=== PATIENT | female | born 1930 | race Caucasian/White ===

== ENCOUNTER 2019-04-05 17:57 | Inpatient (IN) | payer MEDICARE, BC ==
[~2019-04-05] VITALS: Ht 147.3 cm; Wt 59.0 kg
--- NOTE | ~2019-04-05 | PR ---
[place], [place] PROGRESS NOTE NAME: ELVIE MAYS UNIT #: [id number] ROOM: 317 DOCTOR: GAYLE YORK DO BIRTHDATE: [birth year] DOS: 04/27/2019 PSYCHIATRIC PROGRESS NOTE CHIEF COMPLAINT: Hi, "I am feeling great. Rest of the conversation, the patient spoken in Nigerien." SUMMARY OF VISIT: The patient interviewed in hallway using the Merry walker. The patient was polite and smiling. The patient attempted to communicate with us, but she was only speaking in Nigerien. Per nursing staff, the patient did not sleep well last night. She had to be given p.r.n. Ativan and it was ineffective. However, she has been polite with staff and continues to be interactive in a friendly way. MENTAL STATUS EXAMINATION: Mental status examination is limited due to the patient's overall confusion and her inability to speak Vietnamese. PLAN: The patient remains stable. No medication changes at this time due to the patient being stable. We will continue to support and monitor. We will continue to have the patient engaged in individual and salazar milieu activity, returning to the least restrictive environment when stable. Gayle York DO CON NGUYEN MD CM:PNTRANS [id number] GAYLE YORK DO 04/28/19 0156 interface
--- NOTE | ~2019-04-05 | PR ---
[place], [place] PROGRESS NOTE NAME: ELVIE MAYS UNIT #: [id number] ROOM: 317 DOCTOR: CON NGUYEN MD BIRTHDATE: [birth year] DOS: 04/23/2019 INTERVAL NOTE CHIEF COMPLAINT: The patient smiled at me. SUMMARY OF THE VISIT: The patient was attempted to be interviewed in the dining room when she was sitting waiting for breakfast. As I approached and attempted to engage her in conversation, she smiled and nodded at me, but did not verbalize anything. She was not agitated or aggressive in any way. There was no mood lability noted. There was also no sedation or somnolence noted. MENTAL STATUS EXAMINATION: My mental status examination is limited due to her confusion and her inability to speak Welsh at this point. PLAN: I will maintain her current psychotropic regimen, continue to engage in individual, and salazar milieu activity, returning then to the least restrictive environment when psychiatrically stable. CON NGUYEN MD CM:PNTRANS [id number] CON NGUYEN MD 04/23/19 0957 interface
--- NOTE | ~2019-04-05 | PR ---
[place], [place] PROGRESS NOTE NAME: ELVIE MAYS UNIT #: [id number] ROOM: 317 DOCTOR: CON NGUYEN MD BIRTHDATE: [birth year] DOS: 04/12/2019 CHIEF COMPLAINT: The patient was awake, alert and engaged in good eye contact, but did not speak. SUMMARY OF THE VISIT: The patient was interviewed as she was sitting. She had already finished her breakfast with the help of the nurse's aides. She ate very well. She was alert and did make eye contact with me. I attempted on multiple occasions to ask her simple questions. She did not respond, however, she was not agitated in any way. She smiled readily. She did not strike out or was not verbally hostile in any fashion. Outwardly, she seems to be tolerating the current medication regimen well without sedation or somnolence. MENTAL STATUS: Limited due to her communication issues. PLAN: I will renew her p.r.n. Ativan should she require intervention, continue to engage in individual and salazar milieu activity, returning to the least restrictive environment when psychiatrically stable. CON NGUYEN MD CM:PNTRANS [id number] CON NGUYEN MD 04/12/19 1233 interface
--- NOTE | ~2019-04-05 | PR ---
[place], [place] PROGRESS NOTE NAME: ELVIE MAYS UNIT #: [id number] ROOM: 317 DOCTOR: UMER GIVENS CNP BIRTHDATE: [birth year] DOS: 04/15/2019 CHIEF COMPLAINT: The patient does not express any concerns. She does not converse with me this morning. SUMMARY OF THE VISIT: The patient was interviewed as she sat in the quiet room. The patient is alert. She opens her eyes whenever I call her name; however, she does not converse with me. Staff reports that the patient did not sleep at all last night, maybe she did sleep 1 hour of interrupted sleep throughout the night, but otherwise, there was no continuity to her sleep. The patient's appetite was good. The patient did remain alert and awake for most of the day yesterday. She does take her medications as prescribed. The patient has not exhibited any behaviors. The patient was treated this morning with Monurol for her UTI. MENTAL STATUS EXAMINATION: The patient is alert to self. There was no jose or hypomania noted. No delusions or paranoia noted. No auditory or visual hallucinations noted. The patient's mood was calm. No agitation or aggression noted this morning. The patient's affect was congruent with mood. PLAN: We will prescribe the patient Vistaril 50 mg at bedtime to see if this will aid in helping her sleep. We will monitor symptoms too, as the patient's UTI resolves. We will encourage the patient to engage in individual and salazar milieu activity. Continue fall safety precautions. Plan is to return the patient to the least restrictive environment when she is considered psychiatrically stable. Umer Givens CNP CM:PNTRANS [id number] [id number] UMER GIVENS CNP 04/16/19 0049 interface
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
--- NOTE | ~2019-04-05 | PR ---
[place], [place] PROGRESS NOTE NAME: ELVIE MAYS UNIT #: [id number] ROOM: 317 DOCTOR: CON NGUYEN MD BIRTHDATE: [birth year] DOS: 04/29/2019 INTERVAL NOTE CHIEF COMPLAINT: The patient smiled at me. SUMMARY OF THE VISIT: The patient was interviewed or attempted to be interviewed as she was sitting in the dining area, watching television. As I approached, she smiled. I attempted to engage her and she spoke what appeared to be Yoruba to me. She was pleasant and cooperative. There was no agitation or aggression, no mood lability was noted. There was no symptom suggestive of hypomania, jose or psychosis. There was no sedation or somnolence. MENTAL STATUS: She is alert and oriented to self, unclear place or time. Mood seems fairly euthymic. There is no mood lability, no jose or psychosis. No TD or extrapyramidal symptoms. PLAN: The patient appears stable. At this point, I see no reason to adjust any medicines further. If she does seem to be in a euthymic state, we will monitor and support, return to the least restrictive environment when stable. CON NGUYEN MD CM:PNTRANS 1059 CON NGUYEN MD 04/29/19 1059 interface
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
--- NOTE | ~2019-04-05 | PR ---
[place], [place] PROGRESS NOTE NAME: ELVIE MAYS UNIT #: [id number] ROOM: 317 DOCTOR: CON NGUYEN MD BIRTHDATE: [birth year] DOS: 04/25/2019 CHIEF COMPLAINT: The patient smiled readily as I approached and engaged her in conversation. SUMMARY OF THE VISIT: The patient was attempted to be interviewed as she was finishing her breakfast with the aid of one of the nurse's aides. As I approached, she smiled readily. She nodded, but did not communicate beyond that. There was no inappropriate behavior. There was no mood lability or agitation. For the most part, she looked pleasantly content: MENTAL STATUS EXAMINATION: My mental status examination is limited due to her overall level of confusion and her inability at this time to speak Sami. PLAN: The patient is stable. At this point, I will maintain her current psychotropic regimen, continue to engage in individual and salazar milieu activity, returning to the least restrictive environment when stable. [employer] have been notified to let the family know that discharge is eminent and will happen tomorrow. We will proceed accordingly. CON NGUYEN MD CM:PNTRANS 0928 16 CON NGUYEN MD 04/25/19 2017 interface
--- NOTE | ~2019-04-05 | PR ---
[place], [place] PROGRESS NOTE NAME: ELVIE MAYS UNIT #: [id number] ROOM: 317 DOCTOR: CON NGUYEN MD BIRTHDATE: [birth year] DOS: 04/24/2019 INTERVAL NOTE CHIEF COMPLAINT: "The patient smiled readily." SUMMARY OF THE VISIT: The patient was interviewed as she was eating her breakfast. She had most of her breakfast eaten and smiled as I approached. She nodded, but did not speak Chadian to me. There was no agitation, no aggression, no inappropriate behavior. There was no sedation, somnolence, extrapyramidal symptoms or tardive dyskinesia. On mental status, she was alert and oriented to self, not time or place. Mood was euthymic. Affect was appropriate. There is no jose or hypomania. No gross psychosis. Memory does have gaps. PLAN: I will continue her current psychotropic regimen, continue to engage in individual and salazar milieu activity, returning to the least restrictive environment when psychiatrically stable. CON NGUYEN MD CM:PNTRANS [id number] CON NGUYEN MD 04/24/19 1319 interface
--- NOTE | ~2019-04-05 | PR ---
[place], [place] PROGRESS NOTE NAME: ELVIE MYAS UNIT #: [id number] ROOM: 317 DOCTOR: CON NGUYEN MD BIRTHDATE: [birth year] DOS: 04/09/2019 INTERVAL NOTE CHIEF COMPLAINT: "The patient just looked at me". SUMMARY OF THE VISIT: The patient was attempted to be interviewed as she was sitting in a Tiffany chair in the quiet room. As I approached, she made eye contact. I attempted on multiple occasions to call her name and asked her simple questions. She did not make any verbalizations whether it be in Welsh or Greek. She looked at me and did not appear distraught in anyway. She did not yell out. She was not agitated in any motor fashion. She seemed for the most part fairly pleasant. MENTAL STATUS: She is alert and oriented to self, unclear place or time. Mood does still seem to be anxious at times and she is very fretful per nursing report. PLAN: I will go ahead and increase her Xanax to 0.5 mg twice daily in an effort to decrease her outward anxiety. We will monitor and support, engage in individual and salazar milieu activity, returning to the least restrictive environment when psychiatrically stable. CON NGUYEN MD CM:PNTRANS [phone] CON NGUYEN MD 04/09/19 1233 interface
--- NOTE | ~2019-04-05 | PR ---
[place], [place] PROGRESS NOTE NAME: ELVIE MAYS UNIT #: [id number] ROOM: 317 DOCTOR: UMER GIVENS CNP BIRTHDATE: [birth year] DOS: 04/14/2019 CHIEF COMPLAINT: "Hello." SUMMARY OF VISIT: The patient was interviewed as she sat in the activities room. She does not engage in conversation. The patient continues to be somewhat somnolent. Staff reports that the patient seems to have her days and nights mixed up, sleeping more during the day and up at night. The patient's appetite has been fair. The patient is taking her medications as prescribed. MENTAL STATUS EXAMINATION: The patient is alert to self. She is pleasant. No agitation or irritability noted at this time. No jose or hypomania noted. No delusions or paranoia noted. No psychotic symptoms noted. No auditory or visual hallucinations noted. The patient's mood is calm. Affect congruent with mood. PLAN: We will order a serum ammonia level, comprehensive metabolic panel, and urinalysis just to rule out any organic factors that may cause the patient to be more somnolent during the day. Continue to encourage the patient to engage in individual and salazar milieu activity. Continue fall and safety precautions. Plan is to return the patient to least restrictive environment when she is considered psychiatrically stable. Umer Givens CNP CM:PNTRANS [phone] UMER GIVENS CNP 04/15/19 0954 interface
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
--- NOTE | ~2019-04-05 | PR ---
[place], [place] PROGRESS NOTE NAME: ELVIE MAYS UNIT #: [id number] ROOM: 317 DOCTOR: UMER GIVENS CNP BIRTHDATE: [birth year] DOS: 04/13/2019 CHIEF COMPLAINT: The patient was very somnolent. SUMMARY OF THE VISIT: I attempted to interview the patient as she sat in the dining room; however, she was sleeping and would not arouse to engage in conversation with me. Staff reports that the patient has been compliant with her medications. She did sleep 5 hours last night. She was somewhat combative with toileting; however, was able to be redirected easily and has had no further behaviors. MENTAL STATUS EXAMINATION: The patient does not exhibit any jose or hypomania. There are no signs of delusions or paranoia. No auditory or visual hallucinations noted. The patient is calm at this time, sleeping. No agitation or aggression noted. PLAN: I will continue the patient's medications as prescribed as she seems to be tolerating them without any side effects. We will continue to monitor and support the patient. We will encourage the patient to engage in individual and salazar milieu activity. We will continue fall and safety precautions. Plan is to return the patient to the least restrictive environment when she is considered psychiatrically stable. Umer Givens CNP CM:PNTRANS 0929 1215 UMER GIVENS CNP 04/13/19 1216 interface
--- NOTE | ~2019-04-05 | PR ---
[place], [place] PROGRESS NOTE NAME: ELVIE MAYS UNIT #: [id number] ROOM: 317 DOCTOR: CON NGUYEN MD BIRTHDATE: [birth year] DOS: 04/28/2019 CHIEF COMPLAINT: "The patient looked at me and smiled." SUMMARY OF THE VISIT: The patient was interviewed as she was sitting in the dining room. She was curled up in a blanket. She had eaten a good breakfast with the assistance of the aides. She was not verbally or physically aggressive. There was no bizarre behavior noted. She for the most part was very pleasant. In my examination of her today, she was pleasant. She did not speak, but nodded and smiled readily. She reached out to hold my hand. She was fairly bright. There was no mood lability, no agitation, no aggression, no sedation, no somnolence, no extrapyramidal symptoms. No tardive dyskinesia. PLAN: At this point is to maintain the current psychotropic regimen as the medications do seem effective. There were no side effects of note and the benefits have been quite profound. CON NGUYEN MD CM:PNTRANS [id number] CON NGUYEN MD 04/28/19 1126 interface
--- NOTE | ~2019-04-05 | PR ---
[place], [place] PROGRESS NOTE NAME: ELVIE MAYS UNIT #: [id number] ROOM: 317 DOCTOR: CON NGUYEN MD BIRTHDATE: [birth year] DOS: 04/22/2019 CHIEF COMPLAINT: The patient was busy eating her breakfast by herself. SUMMARY OF THE VISIT: The patient was interviewed or attempted to be interviewed as she was eating breakfast. She was eating by herself without any assistance and had most if not all of her breakfast tray completely eaten. She was bright and smiled at me, but did not verbalize anything. She was not agitated or aggressive in any way. There was no mood lability noted. There was no sedation or somnolence. MENTAL STATUS: She is alert and oriented to self. Otherwise, it is very difficult to ascertain as she was relatively nonverbal with me. PLAN: I will maintain her current psychotropic regimen, continue to engage in individual and salazar milieu activity, returning to the least restrictive environment when psychiatrically stable. CON NGUYEN MD CM:PNTRANS [id number] CON NGUYEN MD 04/22/19 0939 interface
[~2019-04-05 17:57] MED LIST: ATARAX,VISTARIL50 MG PO; ATIVAN2 M1 PO; DEPAKENE250 M1 PO; DEPAKOTE SPRIN125 MG PO; EXELON13.3 MG/21 T; MELATONIN5 M6 PO; MEMANTINE HCL10 MG PO; MIRTAZAPINE15 M1 PO; PANTOPRAZOLE SO40 MG PO; QUETIAPINE FUM100 M3 PO; RISPERDAL0.5 MG PO; Synthroid,Levo25 MCG PO; VALSARTAN-HCTZ1 EAC1 PO; Vitamin D PO
[2019-04-05] MEDS ORDERED: REMERON15 M2 PO (18:03)
[2019-04-05] MEDS ORDERED: SEROQUEL50 MG PO (18:05)
[2019-04-05] MEDS ORDERED: ZYPREXA5 M1 PO (18:09)
[2019-04-05] MEDS ORDERED: ABH GEL TD (18:11)
--- NOTE | 2019-04-05 19:30 | NUR ---
ELVIE MAYS a 88 year old F admitted via wheel chair from [facility] as a voluntary BY POA admission. Arrived on unit at 1930. ALLERGIES: NKA. Vital signs are: 97.8-65-17 116/72. The POA VERBALLY CONSENTED TO the following forms with stated understanding: Authorization For The Release of Medical Information, Consent to Voluntary Admission and Hospitalization, Consent and Release Forms/Receipt of Rights, Acknowledgement of Advance Directive Information, Behavioral Health Consent Form, and Informed Consent of Medications. Admitted under the services of Dr. WENDY KELLEY,[facility]. A search was conducted and hazardous articles were removed. Client was oriented to the unit. MARYLOU CORRALES
--- NOTE | 2019-04-05 20:03 | NUR ---
DR. DOHERTY NOTIFIED OF NEW ADMISSION. STATED TO PUT THE CONSULT UNDER DR. RAO.
[2019-04-05 20:05] VITALS: BP 116/72
[2019-04-05 20:22] VITALS: BP 116/72
--- NOTE | 2019-04-05 20:49 | NUR ---
DR. DOHERTY ON FLOOR TO ASSESS PT. UPDATE PROVIDED.
[2019-04-05 21:10] LABS: ALBUMIN 3.2 gm/dl (3.1-4.5); ALKALINE PHOSPHATASE 75 U/L (45-117); BUN 33 mg/dl (7-24); CHLORIDE 104 mmol/L (98-107); CHOLESTEROL 181 mg/dL (<200); CREATININE 0.89 mg/dL (0.55-1.02); HDL CHOLESTEROL 56 mg/dl (40-60); LDL CHOLESTEROL 106 mg/dL (9-159); POTASSIUM 3.8 mmol/L (3.5-5.1); SGOT/AST 18 IU/L (3-35); SGPT/ALT 11 U/L (12-78); SODIUM 141 mmol/L (136-145); TOTAL PROTEIN 7.5 gm/dL (6.4-8.2); TRIGLYCERIDES 93 mg/dl (<150); VLDL CHOLESTEROL 19 mg/dL (6-40)
--- NOTE | 2019-04-05 22:28 | NUR ---
UNABLE TO ASSESS IN THE PROCESS INTERVENTIONS GERIATRIC DEPRESSION SCREEN, ST/LT GOALS, SUICIDE RISK SCREENS DUE TO LANGUAGE BARRIER AND COGNITION.
[2019-04-06 00:06] LABS: BILIRUBIN NEGATIVE (NEGATIVE); BLOOD NEGATIVE (NEGATIVE); CLARITY SL CLOUDY (CLEAR); COLOR YELLOW (YELLOW); GLUCOSE NEGATIVE (NEGATIVE); KETONE NEGATIVE (NEGATIVE); LEUKO ESTERASE 2+ (NEGATIVE); NITRITE POSITIVE (NEGATIVE); PH 5.5 (5.0-9.0); UROBILINOGEN 0.2 E.U./dl (0.2-1.0)
[2019-04-06 00:12] LABS: BACTERIA 4+; WBC TNTC wbc/hpf (0-5)
[2019-04-06 00:13] LABS: EPITHELIAL CELLS 0-2; MUCOUS TRACE
--- NOTE | 2019-04-06 01:08 | NUR ---
DR. DOHERTY NOTIFIED OF PT'S URINE RESULTS ARE IN FOR REVIEW. NO NEW ORDERS AT THIS TIME.
--- NOTE | 2019-04-06 02:58 | NUR ---
PT ALERT AND ORIENTED TO PERSON ONLY. CONFUSION AND ST/LT MEMORY DEFICITS NOTED. REORIENTATION INEFFECTIVE, REMAINS AT BASELINE CONFUSION. LANGUAGE BARRIER. MOOD LABILE. NO S/S OF INTERACTING WITH INTERNAL STIMULI. NO DELUSIONAL THOUGHT PROCESS NOTED. NO S/S OF DISTRESS NOTED. RESPIRATIONS EVEN AND UNLABORED ON ROOM AIR. CONTINENT OF URINE. TWO ASSIST WITH TRANSFERING, AMBULATING, AND CARE. PT'S GAIT UNSTEADY. UTILIZING GERICHAIR. PT LIKES TO FOLD HER BLANKET AND TOWELS, SEEMS TO KEEP THE PT CALM. SMILING AT STAFF AND LAUGHING AT TIMES. PT GETS SLIGHTLY IRRITABLE WHEN ASSISTING WITH CARE DUE TO LANGUAGE BARRIER, STEP BY STEP INSTRUCTION NEEDED. FALLING STAR PROGRAM MAINTAINED. Q15 MINUTE CHECKS MAINTAINED FOR SAFETY.
--- NOTE | 2019-04-06 03:04 | NUR ---
24 HR chart check completed.
[2019-04-06 07:11] LABS: BASO % 0.8 % (0.0-1.0); EOS # 0.1 10*3/uL (0.0-0.4); EOS % 2.7 % (1.0-4.0); HEMATOCRIT 34.6 % (37.0-47.0); HEMOGLOBIN 11.2 g/dl (12.0-16.0); LYMPH # 1.3 10*3/uL (1.3-4.4); LYMPH % 24.3 % (27.0-41.0); MEAN CELL VOLUME 88.9 fl (81.0-99.0); MEAN CORPUSCULAR HGB 28.8 pg (27.0-31.0); MEAN CORPUSCULAR HGB CONC 32.4 g/dl (33.0-37.0); MEAN PLATELET VOLUME 10.1 fl (9.6-12.3); MONO # 0.5 10*3/uL (0.1-1.0); MONO % 9.1 % (3.0-9.0); NEUT # 3.3 10*3/uL (2.3-7.9); NEUT % 62.7 % (47.0-73.0); PLATELET COUNT AUTOMATED 220 10*3/uL (130-400); RED BLOOD COUNT 3.89 10*6/uL (4.10-5.10); RED CELL DISTRI WIDTH 15.8 % (0-14.5); WHITE BLOOD COUNT 5.3 10*3/uL (4.8-10.8)
[2019-04-06 07:20] LABS: BUN 31 mg/dl (7-24); CHLORIDE 106 mmol/L (98-107); CREATININE 0.83 mg/dL (0.55-1.02); POTASSIUM 3.6 mmol/L (3.5-5.1); SGOT/AST 17 IU/L (3-35); SGPT/ALT 12 U/L (12-78); SODIUM 141 mmol/L (136-145)
[2019-04-06 07:32] LABS: ALKALINE PHOSPHATASE 64 U/L (45-117); CHOLESTEROL 167 mg/dL (<200); HDL CHOLESTEROL 53 mg/dl (40-60); LDL CHOLESTEROL 97 mg/dL (9-159); TOTAL PROTEIN 6.9 gm/dL (6.4-8.2); TRIGLYCERIDES 84 mg/dl (<150); VLDL CHOLESTEROL 17 mg/dL (6-40)
[2019-04-06 07:40] VITALS: BP 118/65
--- NOTE | 2019-04-06 08:00 | NUR ---
Treatment Plan meeting with Dr. Stallworth, RN, AT, SW and Rn Documentation Specialist. Plan for discharge next week or the following week. Pt. came to [facility] from [facility]. Will reach out to facility to discuss discharge Planning.
--- NOTE | 2019-04-06 08:04 | NUR ---
PHYSICAL THERAPY Nursing screen received. PT orders also received. Thank you. Damaris Schneider,PT
[2019-04-06 08:34] LABS: VITAMIN D, 25-HYDROXY 28.4 ng/mL (30-100)
--- NOTE | 2019-04-06 08:34 | NUR ---
Nursing screen and Occupational Therapy referral received. Thank you. Joyce Sung OTR/L
--- NOTE | 2019-04-06 10:02 | NUR ---
DR ESCALANTE ON UNIT TO ASSESS PT
--- NOTE | 2019-04-06 11:50 | NUR ---
PHYSICAL THERAPY PAtient sleeping at this time. Damaris Schneider,PT
--- NOTE | 2019-04-06 12:09 | NUR ---
Please refer to psychosocial assessment from previous patient admission date 03/08/19.
--- NOTE | 2019-04-06 12:53 | NUR ---
AM GROUP/MUSIC AND LIGHT THERAPY PT DID NOT ATTEND MORNING GROUP THERAPY. PT WAS ASLEEP RECLINED IN A ZEINA CHAIR IN THE DAYROOM
--- NOTE | 2019-04-06 14:25 | NUR ---
Pt. is [facility] care at [facility] and will return at discharge. Clinical Updates faxed to [facility].
--- NOTE | 2019-04-06 15:53 | NUR ---
PM GROUP/BINGO PT WAS PRESENT FOR AFTERNOON GROUP THERAPY SLEEPING RECLINED IN A ZEINA CHAIR. PT STIRRED ONCE BUT OTHERWISE DID NOT WAKE.
--- NOTE | 2019-04-06 17:14 | NUR ---
PT ALERT TO PERSON ONLY WITH CONFUSION AND MEMORY DEFICITS NOTED. STABLE MOOD. PT HAD INCREASED DROWSINESS. AROUSABLE WITH VERBAL AND PHYSICAL CUES. NO HALLUCINATIONS OR DELUSIONS NOTED. NO SI/HI NOTED. CALM. WITHDRAWN TO SELF. FALL PRECAUTIONS MAINTAINED. Q15 MINUTE SAFETY CHECKS MAINTAINED. SON IN FOR VISIT THIS AFTERNOON. REVIEWED MEDICATIONS WITH SON. MEDICATION COMPLIANT WITHOUT DIFFICULTIES. NO HITTING, SPITTING, OR BITING NOTED. SEE [facility] FLOWSHEET FOR SPECIFIC MONITORING.
[2019-04-06 20:00] VITALS: BP 106/72
--- NOTE | 2019-04-07 00:45 | NUR ---
P- TEARFUL. RESTLESS. ANXIOUS. ALERT AND ORIENTED TO PERSON ONLY, CONFUSED. ST/LT MEMORY DEFICITS NOTED. LANGUAGE BARRIER. I- 1:1 THERAPEUTIC INTERVENTION WITH EMOTIONAL SUPPORT PROVIDED. LOW STIMULI AND LOW LIGHT ENVIRONMENT PROVIDED. DIVERSIONAL ACTIVTIES PROVIDED TO KEEP BUSY WHILE RESTLESS AND ANXIOUS. PROVIDE SHREYAS-WALKER. ASSESS MOOD, ORIENATION, HALLUCINATIONS, DELUSIONS, OR PAIN. PROVIDE MEDICATONS ON TIME WITH EDUCATION ON EACH MED. 1-2 ASSIST WITH TRANSFERING, AMBULATING, ADLS, AND CARE DUE TO UNSTEADY GAIT. PROVIDE ADLS AND CARE FREQUENTLY DUE TO INABILITY TO VOICE NEEDS. R- 1:1 INTERVENTION SLIGHTLY EFFECTIVE. PT TALKING IN PERSIAN TO STAFF AND TEARFUL. UTILIZING MARYWALKER UP AND DOWN THE HALLS, CALMING THE PT. ENJOYS FOLDING TOWELS WHILE RESTLESS. ALERT TO NAME ONLY. MOOD LABILE. NO S/S OF INTERACTING WITH INTERNAL STIMULI. NO DELUSIONAL THOUGHT PROCESS NOTED. NO S/S OF DISTRESS NOTED. RESPIRATIONS EVEN AND UNLABORED ON ROOM AIR. TEARFUL AT TIMES. MEDICATION COMPLIANT WITH NO DIFFICULITES. P- 1:1 INTERACTION WITH EMOTIONAL SUPPORT PROVIDED WHEN NECESSARY. PROVIDE MEDICATIONS ON TIME WITH EDUCATION ON EACH. PROVIDE LOW STIMULI/LOW LIGHT ENVIRONMENT. PROVIDE DIVERSIONAL ACTIVTIES, TOWELS TO FOLD. PROVIDE MARYWALKER TO UTILIZE FREQUENTLY. 1-2 ASSIST WITH ADLS, TRANSFER, AMBULATING, CARE DUE TO UNSTEADY GAIT. FALLING STAR PROGRAM MAINTAINED. Q15 MINUTE CHECKS MAINTAINED FOR SAFETY.
--- NOTE | 2019-04-07 01:35 | NUR ---
24 HR chart check completed.
--- NOTE | 2019-04-07 05:29 | NUR ---
PT MONITORED ON Q15 MINUTE CHECKS THROUGHOUT THE NIGHT FOR SAFETY. NOTED PT DID NOT SLEEP. PT WAS UP IN THE MARYWALKER, GOING UP AND DOWN THE AHMADI. PT WANTED IN THE GERICHAIR WITH LEGS UP, QUIET AND PLEASANT.
[2019-04-07 08:00] VITALS: BP 108/70
--- NOTE | 2019-04-07 11:48 | NUR ---
AM GROUP/EXERCISES/COPING SKILLS LORENA PT ATTENDED BUT DID NOT PARTICIPATE DUE TO SLEEPING ENTIRE GROUP IN RECLINER. PT WILL CONTINUE TO ATTEND AN DBE ENCOURAGED OT PARTICIPATE TO BEST OF PT ABILITY IN FUTURE GROUP SESSIONS.
--- NOTE | 2019-04-07 12:07 | NUR ---
PHYSICAL THERAPY ATTEMPTED TO EVAL PATIENT TODAY ON [facility] BUT AFTER SPEAKING WITH NURSES/OUTREACH NURSE'S SHE IS NOT APPROPRIATE FOR PT SERVICES. SHE IS UNABLE TO UNDERSTAND OR SPEAK ICELANDIC AND SHE IS CURRENTLY ABLE TO [facility]F [facility] AND UNSURE OF PLOF BUT APPEARS SHE AMBULATES ON HER OWN. THANK YOU FOR REFERRAL [facility] PT
--- NOTE | 2019-04-07 16:11 | NUR ---
PM GROUP/GAMES PT SLEPT FIRST 15 MINUTES OF GROUP AND THEN ATTEMPTED TO CLIMB OUT OF RECLINER. NURSE CAME AND TOILETED PT AND ASSISTED PT INTO SHREYAS WALKER. PT UTILIZED SHREYAS WALKER UP AND DOWN THE AHMADI REMAINDER OF GROUP. PT WILL CONTINUE TO BE ENCOURAGED TO ATTEND AN DPARTICIPATE IN GROUP TO BEST OF PT ABILITY.
--- NOTE | 2019-04-07 18:09 | NUR ---
P: FLUCTUATING ALERTNESS, POOR SAFETY AWARENESS, POOR ST/LT MEMORY, RESTLESSNESS LANGUAGE BARRIER I: ASSIST PT WITH NEEDS DEPENDING ON ALERTNESS, AT 1330 PT BECAME VERY ALERT AND NOT FATIGUED. ASSISTED TO TOILET PLACED IN MERRY WALKER, PT PROPELLING SELF UP AND DOWN HALLWAYS, MONITORED BY STAFF FOR SAFETY, R: PT WANDERS INTO OTHERS ROOMS AT TIMES AND WILL BE REDIRECTED BY STAFF AWAY, PT HAS REMOVED PANTS AT TIMES IN HALLWAYS STAFF WILL REDIRECT AND ASSIST HER TO THE BATHROOM. PT ENJOYS AMBULATING WITH STAFF AND WITH MERRY WALKER. REQUIES STAFF TO FEED AND ASSIST WITH ALL ASPECTS OF HANDS ON CARE. INAPPROPRIATE WITH BM AT TIMES, EVEN WHEN TOILETED FREQUENTLY P: CONTINUE TO REDIRECT, REPOSITION, GUIDE, ENCROUAGE MEDICATION COMPLIANCE, TOILET FREQUENTLY ENCOURAGE HER TO USE BATHROOM PROPERLY. NO SI/HI OR DELUSIONS NOTED PT WILL TALK TO SELF AND SPEAK NONSENSICAL
[2019-04-07 20:00] VITALS: BP 110/65
--- NOTE | 2019-04-07 23:10 | NUR ---
LANGUAGE BARRIER CLIENT ONLY SPEAKING SYRIAN. TOOK APPROX 75% OF MEDICATIONS BEFORE SPITTING OUT. REMAINS AWAKE PLAYING WITH BLANKETS IN CHAIR
--- NOTE | 2019-04-08 02:09 | NUR ---
REMAINS AWAKE IN DININGROOM WATCHING TV. LESS YELLING OUT AT THIS TIME
--- NOTE | 2019-04-08 05:17 | NUR ---
24 HR chart check completed.
--- NOTE | 2019-04-08 05:20 | NUR ---
24 HR chart check completed.
--- NOTE | 2019-04-08 06:13 | NUR ---
DID NOT SLEEP AT ALL LAST NIGHT. HAS BEEN AWAKE AND ACTIVE ALL NIGHT IN DININGROOM.
[2019-04-08 07:29] VITALS: BP 108/66
--- NOTE | 2019-04-08 18:07 | NUR ---
PT ALERT TO PERSON WITH CONFUSION NOTED. NO HALLUCINATIONS OR DELUSIONS NOTED. NO SI/HI NOTED. PT REFUSED MEDICATIONS IN THE AM. PT TOOK AFTERNOON MEDICATIONS FOR FAMILY AND EVENING MEDICATIONS FOR THIS NURSE IN [facility]. PT AMBULATED AROUND UNIT IN [facility] THROUGHOUT AFTERNOON AND EVENING. COMBATIVENESS NOTED DURING MED PASS IN THE AM, HOWEVER BEHAVIOR STOPPED WHEN CARE WAS COMPLETED. NO OTHER COMBATIVENESS NOTED THIS SHIFT. NO BITING OR SPITTING NOTED. PT INTERMITTENTLY NAPPED PRIOR TO LUNCH. INCONTINENCE CARE PROVIDED WHEN NEEDED. BEHAVIORS MONITORED WITH Q15 MINUTE SAFETY CHECKS. SEE [facility] FLOWSHEET FOR SPECIFIC MONITORING
[2019-04-08 19:11] VITALS: BP 112/69
--- NOTE | 2019-04-09 02:36 | NUR ---
[facility] VOID[facility] AND [facility]
--- NOTE | 2019-04-09 05:31 | NUR ---
SLEPT WELL PAST 0300AM 24 HR chart check completed.
[2019-04-09 07:54] VITALS: BP 111/65
--- NOTE | 2019-04-09 11:46 | NUR ---
AM GROUP/EXERCISE AND WRITING PT IS UNABLE TO ATTEND AND PARTICIPATE IN GROUP THERAPY AT THIS TIME DUE TO COGNITIVE IMPAIRMENT AND A LANGUAGE BARRIER.
--- NOTE | 2019-04-09 15:51 | NUR ---
PM GROUP/MUSIC AND TRIVIA PT DID NOT ATTEND AFTERNOON GROUP THERAPY. PT IS UNABLE TO PARTICIPATE AT THIS TIME DUE TO COGNITIVE IMPAIRMENT, HIGH LEVEL OF CONFUSION AND LANGUAGE BARRIERS.
--- NOTE | 2019-04-09 16:31 | NUR ---
Clinical Updates faxed to [facility].
[2019-04-09 20:00] VITALS: BP 112/62
--- NOTE | 2019-04-10 00:37 | NUR ---
NO ADVERSE MOODS OR BEHAVIORS NOTED THIS SHIFT. ALERT TO SELF, CONFUSION AND ST/LT MEMORY DEFICITS NOTED. LANGUAGE BARRIER. REORIENATION INEFFECTIVE, REMAINS AT BASELINE. MOOD STABLE. NO S/S OF INTERACTING WITH INTERNAL STIMULI. NO DELUSIONAL THOUGHT PROCESS NOTED. RESPIRATIONS EVEN AND UNLABORED ON ROOM AIR. NO S/S OF DISTRESS NOTED. REFUSED HS SNACK. CONTINENT OF BLADDER. INCONTINENT OF BOWEL. PT CURRENTLY AWAKE, SITTING UP IN GERICHAIR, RELAXING. FALLING STAR PROGRAM IN PLACE. Q15 MINUTE CHECKS MAINTAINED FOR SAFETY.
--- NOTE | 2019-04-10 00:41 | NUR ---
24 HR chart check completed.
--- NOTE | 2019-04-10 05:49 | NUR ---
Q15 MINUTE CHECKS MAINTAINED THROUGHOUT THE NIGHT. NOTED TO HAVE SLEPT APPROXIMATELY 2 HOURS OF INTERRUPTED SLEEP. PT MORE COMFORTABLE UP IN GERICHAIR IN THE DINING ROOM. PT MORE RELAXED AND WAS ABLE TO GET THE TWO HOURS OF SLEEP IN THE ZEINA CHAIR.
[2019-04-10 07:49] VITALS: BP 117/65
--- NOTE | 2019-04-10 08:00 | NUR ---
Treatment Plan meeting with Dr. Stallworth, RN, AT, SW and Material Liaison. Plan for discharge Next week. Pt. will return to [facility].
--- NOTE | 2019-04-10 08:00 | NUR ---
Patient resting quietly with no c/o discomfort. Respirations easy and regular. Vital signs stable. No overt distress. DIRK ASKEW
--- NOTE | 2019-04-10 11:51 | NUR ---
AM GROUP/EXERCISE AND DISCUSSION PT WAS PRESENT FOR GROUP SLEEPING IN A ZEINA CHAIR. PT AWOKE ONE TIME AND YELLED, "SHUT UP! YADDA, YADDA, YADDA" AND WENT BACK TO SLEEP. PT IS UNABLE TO PARTICIPATE AT THIS TIME DUE TO COGNITIVE IMPAIRMENT AND LANGUAGE BARRIER.
--- NOTE | 2019-04-10 15:21 | NUR ---
Problem: Short term and ocean transportation intermediary deficits, confusion Intervention: Attempted to provide reorientation, unable to assess due to language barrier. Result: Patient out on unit in TV area with peers , no socializing observed thus far. Patient remains safe on the unit. Plan: Continue to monitor patient for safety via 15 minute safety checks, maintain safety on the unit, continue to encouraged socialization with peers and staff. Encouarge attending and participating in groups.
--- NOTE | 2019-04-10 17:29 | NUR ---
PM GROUP/ MUSIC TRIVIA PT ATTENDED BUT SLEPT ENTIRE GROUP. PT WILL CONTINUE TO ATTEND FUTURE GROUP SESSIONS AND BE ENCOURAGED TO PARTICIPATE TO BEST OF ABILITY.
[2019-04-10 20:47] VITALS: BP 129/56
--- NOTE | 2019-04-10 20:56 | NUR ---
EVENING/BINGO PT RESTING IN QUIET ROOM AT THIS TIME. PT WILL CONTINUE TO BE ENCOURAGED TO ATTEND AN DPARTICIPATE TO BEST OF ABILITY IN FUTURE GROUP SESSIONS.
--- NOTE | 2019-04-10 23:32 | NUR ---
P- ALERT TO PERSON ONLY, ST/LT MEMORY DEFICITS NOTED. LANGUAGE BARRIER. IRRITABLE WITH HANDS ON CARE. LABILE, AGITATED, TEARFUL. I- REORIENT PT FREQUENTLY WHEN CONFUSION IS NOTED. 1:1 INTERACTION WITH EMOTIONAL SUPPORT PROVIDED. COPING MECHANISMS. STEP BY STEP INSTRUCTION WITH HANDS ON CARE DUE TO INCREASED CONFUSION DURING THESE TIMES. ASSESS MOOD, ORIENTATION, HALLUCINATIONS, DELUSIONS, OR PAIN. ASSIST WITH CARE, ADLS FREQUENTLY DUE TO LANGUAGE BARRIER AND WHEN GETS IRRITABLE. PROVIDE LOW STIMULI/ENVIRONMENT WHEN INCREASED AGITATION. OFFER FOOD AND FLUID FREQUENTLY. R- REMAINS AT BASELINE CONFUSION EVEN WITH REORIENTATION. LANGUAGE BARRIER. 1:1 INTERACTION EFFECTIVE AT TIMES, HOLDING ONTO STAFF AND TEARFUL; THEN WILL BE SMILING AND PLEASANT. LOW STIMULI/LOW LIGHTING EFFECTIVE. TWO ASSIST WITH TRANSFERING, AMBULATING, CARE, ADLS DUE TO UNSTEADY GAIT. UTILIZE GERICHAIR DUE TO UNSTEADY GAIT. STEP BY STEP INSTRUCTION EFFECTIVE WHEN INCREASED CONFUSION/AGITATION. MOOD REMAINS LABILE. NO S/S OF INTERACTING WITH INTERNAL STIMULI. NO DELUSIONAL THOUGHT PROCESS NOTED. RESPIRATIONS EVEN AND UNLABORED ON ROOM AIR. NO S/S OF DISTRESS NOTED. PT WILL GO FROM BEING IRRITABLE TO PLEASANT FREQUENTLY. POOR PO INTAKE REMAINS EVEN WITH MUCH ENCOURAGEMENT. A COPING MECHANISM, PT PERFERS TO FOLD TOWELS. P- REORIENT WITH CONFUSION. 1:1 INTERACTION WITH EMOTIONAL SUPPORT PROVIDED WHEN NECESSARY. ASSESS MOOD, ORIENTATION, HALLUCINATIONS, DELUSIONS, OR PAIN EVERY SHIFT. TWO ASSIST WITH CARE, ADLS, TRANSFERING, AMBULATING DUE TO UNSTEADY GAIT. PROVIDE FOOD AND FLUIDS FREQUENTLY. LOW STIMULI/LIGHTING ENVIRONMENT AND COPING MECHANISMS PROVIDED WHEN INCREASED AGITATION. FALLING STAR PROGRAM IN PLACE. Q15 MINUTE CHECKS MAINTAINED FOR SAFETY.
--- NOTE | 2019-04-11 00:26 | NUR ---
24 HR chart check completed.
--- NOTE | 2019-04-11 06:07 | NUR ---
Q15 MINUTE CHECKS MAINTAINED THROUGHOUT THE NIGHT. NOTED PT SLEPT APPROXIAMETLY 1.5 HOURS OF INTERRUPTED SLEEP.
[2019-04-11 07:59] VITALS: BP 131/60
--- NOTE | 2019-04-11 08:00 | NUR ---
Treatment Plan meeting with Dr. Stallworth, RN, AT, SW and Fondant Machine Operator. Plan for discharge next week. Pt. will return to [facility].
--- NOTE | 2019-04-11 08:16 | NUR ---
Patient resting quietly with no c/o discomfort. Respirations easy and regular. Vital signs stable. No overt distress. DIRK ASKEW
--- NOTE | 2019-04-11 12:05 | NUR ---
AM GROUP PT WAS PRESENT FOR MORNING GROUP THERAPY RECLINED IN A ZEINA CHAIR SLEEPING SOUNDLY. PER NURSES REPORT, PT ONLY SLEPT 2 HOURS LAST NIGHT
--- NOTE | 2019-04-11 12:38 | NUR ---
Problem: group home and short term memory deficits Intervention:Maintain safety on the unit, maintain Q 15 minute safety checks, provide reorientation to patient. Result : Patient remains safe on the unit, unable to assess patient for orientation, patient has been med compliant and pleasant. Plan: Maintain safety on the unit, encourage patient to socialize with peers and staff, encourage patient to attend and participate in groups.
[2019-04-11 20:11] VITALS: BP 134/70
--- NOTE | 2019-04-11 22:12 | NUR ---
Patient is at her baseline confusion. Language barrier as patient only speaks Bruneian. Did not have to give patient any medication. Patient playing with blanket while sitting in chair. Q 15 minute safety checks continued and maintained. See [facility] flowsheet for further documentation.
--- NOTE | 2019-04-12 00:29 | NUR ---
24 HR chart check completed.
--- NOTE | 2019-04-12 05:21 | NUR ---
Patient slept approx. 5 hours throughout shift. Q 15 minute safety checks continued and maintained.
--- NOTE | 2019-04-12 08:00 | NUR ---
Treatment Plan meeting with Dr. Stallworth, RN, AT, and Business Support Specialist. Plan for discharge next week. Pt. came to [facility] from [facility]. Received call from [facility] stating that Pt. is no longer appropriate for their facility as they are unable to meet her needs and that he sent clinical information to [facility] for review.
[2019-04-12 08:02] VITALS: BP 127/70
--- NOTE | 2019-04-12 10:17 | NUR ---
Received Call from Deonna Velazquez at [facility] they received Information from [facility] for possible referral. [facility] is reviewing information.
--- NOTE | 2019-04-12 11:54 | NUR ---
HERMINIO MONTOYA/RAYA PT IS UNABLE TO ATTEND OR PARTICIPATE IN GROUP THERAPY AT THIS TIME DUE TO COGNITIVE IMPAIRMENT, LANGUAGE BARRIER AND YELLING OUT.
--- NOTE | 2019-04-12 15:01 | NUR ---
Patient continues to be lethargic and difficult to arouse. She will nod no when spoken to. She is not appropriate for OT at this time. Discharge OT referral at this time. If patient should become more consistantly alert, then an OT referral may be appropriate. Thank you. Joyce Sung OTR/abdulkadir
--- NOTE | 2019-04-12 15:15 | NUR ---
Per Clara Grewal, [facility] neighborhood planner, Alton from [facility] phoned Clara and informed her that [facility] has decided that they are unable to provide the level of care that pt needs. This check writer salesperson attempted but was unable to reach pt's daughter/DPOAHC Samreen Patel. Phoned pt's son Dora to discuss this. Dora was unaware of [facility]'s decision. Dora was able to reach Samreen who then called this check writer salesperson. Samreen stated that no one from [facility] has been in contact with her. Samreen stated that she doesn't understand because she feels pt is doing much better. Samreen commented that she does not want pt to transfer to [facility]. Because Samreen just learned of [facility] decision, this check writer salesperson suggested that Samreen take some time to process this and discuss discharge options with her family.
--- NOTE | 2019-04-12 15:41 | NUR ---
Received a call from pt's daughter/DPOAHC Samreen Patel. Samreen stated that she has decided that she wants pt to return to [facility] and will do whatever she needs to do to make that happen. Discussed contacting [facility]. Informed Samreen that this report writer will speak to Alton, director sanitation bureau at [facility], to discuss pt's return. After speaking to Samreen, phoned [facility] and left a voicemail message for Alton requesting a return call.
--- NOTE | 2019-04-12 15:43 | NUR ---
PM GROUP/LEISURE INTERESTS PT WAS PRESENT FOR AFTERNOON GROUP THERAPY SLEEPING IN A ZEINA CHAIR. PT IS UNABLE TO PARTICIPATE IN GROUP AT THIS TIME DUE TO COGNITIVE IMPAIRMENT AND LANGUAGE BARRIER.
[2019-04-12 20:00] VITALS: BP 125/72
--- NOTE | 2019-04-12 23:50 | NUR ---
NO ADVERSE MOODS OR BEHAVIORS NOTED THIS SHIFT. LANGUAGE BARRIER REMAINS. ALERT TO PERSON ONLY. CONFUSION AND ST/LT MEMORY DEFICITS NOTED. REORIENTATION INEFFECTIVE, BASELINE CONFUSION REMAINS. MOOD STABLE. NO S/S OF INTERACTING WITH INTERNAL STIMULI. NO DELUSIONAL THOUGHT PROCESS NOTED. NO S/S OF DISTRESS NOTED. RESPIRATIONS EVEN AND UNLABORED ON ROOM AIR. TWO ASSIST WITH TRANSFERING, AMBULATING, ADLS, AND CARE DUE TO UNSTEADY GAIT AND CONFUSION. CONTINENT OF BLADDER. FALLING STAR PROGRAM IN PLACE. Q15 MINUTE CHECKS MAINTAINED FOR SAFETY.
--- NOTE | 2019-04-13 00:53 | NUR ---
24 HR chart check completed.
--- NOTE | 2019-04-13 05:38 | NUR ---
Q15 MINUTE CHECKS MAINTAINED THROUGHOUT THE NIGHT. NOTED TO HAVE SLEPT APPROXIMATELY 5 HOURS OF UNINTERRUPTED SLEEP.
[2019-04-13 07:43] VITALS: BP 126/57
--- NOTE | 2019-04-13 11:21 | NUR ---
DR. HOLLEY ON UNIT TO ASSESS PT, UPDATE PROVIDED.
--- NOTE | 2019-04-13 12:14 | NUR ---
AM GROUP PT WAS PRESENT FOR MORNING GROUP THERAPY SLEEPING RECLINED IN A ZEINA CHAIR. PT DID NOT AWAKEN DURING GROUP.
--- NOTE | 2019-04-13 15:04 | NUR ---
Clinical Updates faxed to [facility].
--- NOTE | 2019-04-13 15:47 | NUR ---
PM GROUP/ART AND MUSIC PT DID NOT ATTEND AFTERNOON GROUP THERAPY. PT WAS AMBULATING THE HALLWAY IN [facility].
--- NOTE | 2019-04-13 15:57 | NUR ---
Spoke to Alton at [facility] about pt returning there. Alton stated that they are unable to meet pt's needs. Informed Alton that pt's family was unaware of this and are expecting pt to return there. Pt's family does not want to place pt at a different [facility], per Samreen, pt's DPOAHC. Alton stated that he would have the [facility] social and human services assistant speak to pt's family..
--- NOTE | 2019-04-13 16:30 | NUR ---
NO ADVERSE MOODS OR BEHAVIORS NOTED THIS SHIFT. PT ALERT TO PERSON ONLY, CONFUSION AND SHORT TERM/MCFP MEMORY DEFICITS NOTED PER PT BASELINE. LANGUAGE BARRIER REMAINS. PT MED COMPLIANT WITHOUT DIFFICULTY, UNABLE TO PROVIDE MED EDUCATION D/T COGNITION. PT CALM, MOOD IS STBALE. PT SLIGHTLY ANXIOUS THIS AFTERNOON AFTER LUNCH, PT PLACED IN MERRYWALKER, NO FURTHER ANXIETY NOTED. NO HALLUCINATIONS OR DELUSIONS NOTED. NO SUICIDAL THOUGHTS OR BEHAVIORS NOTED. PT CONTINENT OF BOWEL AND BBLADDER. PLAN IS TO MONITOR PT BEHAVIORS ON Q15 MIN SAFETY CHECKS, ENCOURAGE MED COMPLIANCE, PROVIDE EMOTIONAL SUPPORT AND 1:1 FOR PT TO VOICE FEELINGS.
[2019-04-13 20:39] VITALS: BP 122/68
--- NOTE | 2019-04-14 01:02 | NUR ---
Shift chart check completed.
--- NOTE | 2019-04-14 06:18 | NUR ---
PT SLEPT 0 HOURS THIS SHIFT. Q15 MINUTE SAFETY CHECKS MAINTAINED. SEE [facility] FLOWSHEET FOR SPECIFIC MONITORING.
[2019-04-14 07:56] VITALS: BP 121/65
--- NOTE | 2019-04-14 08:00 | NUR ---
Patient resting quietly with no c/o discomfort. Respirations easy and regular. Vital signs stable. No overt distress. DIRK ASKEW
--- NOTE | 2019-04-14 08:53 | NUR ---
COLLABORATED WITH ACTIVITY THERAPIST, PT GIVEN BRIGHT LIGHT THERAPY TO HELP WITH DISORIENTATION OF DAYS/NIGHTS.
--- NOTE | 2019-04-14 11:38 | NUR ---
PT IS CONFUSED. PT DISORIENTED TO TIME, PT DROWSY T/O DAY AND STAY AWAKE ALL NIGHT. PT PROVIDED WITH BRIGHT LIGHT THERAPY. PT DIFFICULT TO COMMUNICATE WITH D/T LANGUAGE BARRIER AND POOR COGNITION. PT INTERMITTENTLY DOZING T/O BRIGHT LIGHT THERAPY. PT VERBALLY AND TACTILE STIMULATED T/O NAPPING TO INTERRUPT RESTFUL SLEEP. PT WILL BRIEFLY AWAKEN AND FALL BACK TO SLEEP. WILL CONTINUE TO ATTEMPT TO REORIENT PT. WILL CONTINUE TO ATTEMPT TO AWAKEN PT T/O DAY TO PROMOTE RESTFUL SLEEP AT NIGHT. WILL CONTINUE TO ENCOURAGE MEDICATION COMPLIANCE. Q 15 MIN MONITORING PER POLICY FOR SAFETY.
--- NOTE | 2019-04-14 12:04 | NUR ---
AM GROUP/EXERCISES/DISCUSSION PT ATTENDED GROUP BUT SLEEPING THROUGHOUT. PT JUST FINISHED LIGHT THERAPY TO ASSIST IN REORIENTING PT TO DAYS AND NIGHTS. PT CONTINUED TO SLEEP BUT THIS STAFF ATTEMPTED TO WAKE PT EVERY SO OFTEN. PT WOULD WAKE FOR A MINUTE-30 SECONDS AND WOULD FALL BACK ASLEEP. PT WILL CONTINUE TO ATTEND GROUP AND PARTICIPATE TO BEST OF ABILITY.
--- NOTE | 2019-04-14 16:01 | NUR ---
PM GROUP/LEISURE SKILLS PT ATTENDED GROUP AND PARTICIPATED TO BEST OF ABILITY BY FOLDING TOWELS AND BLANKETS. PT ALSO UTILIZED LIGHT BOX AT THIS TIME. PT WILL CONTINUE TO ATTEND GROUPS AND BE ENCOURAGED OT PARTICIPATE TO BEST OF PT ABILITY.
[2019-04-14 18:17] LABS: BILIRUBIN NEGATIVE (NEGATIVE); BLOOD TRACE-LYSED (NEGATIVE); CLARITY SL CLOUDY (CLEAR); COLOR YELLOW (YELLOW); GLUCOSE NEGATIVE (NEGATIVE); KETONE NEGATIVE (NEGATIVE); LEUKO ESTERASE 3+ (NEGATIVE); NITRITE POSITIVE (NEGATIVE); PH 6.5 (5.0-9.0); UROBILINOGEN 0.2 E.U./dl (0.2-1.0)
[2019-04-14 18:36] LABS: BACTERIA 4+; WBC 51-100 wbc/hpf (0-5)
[2019-04-14 18:37] LABS: RBC 0-2 rbc/hpf (0-2)
--- NOTE | 2019-04-14 18:46 | NUR ---
DR. ESQUIVEL MADE AWARE OF UA RESULTS. STATES HE WILL PUT IN ORDERS. WITNESSED BY SECOND RN
--- NOTE | 2019-04-14 19:14 | NUR ---
Shift chart check completed.
[2019-04-14 20:00] VITALS: BP 113/85
--- NOTE | 2019-04-14 23:55 | NUR ---
24 HR chart check completed.
--- NOTE | 2019-04-15 03:12 | NUR ---
P-CONFUSION, RESTLESSNESS. PATIENT ALERT WITH CONFUSION. 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 PATIENT WITH NO RESPIRATORY DISTRESS. PATIENT WITH NO HALLUCINATIONS OR DELUSIONS. PATIENT WITH NO SUICIDAL OR HOMICIDAL IDEATIONS. I-REDIRECTION WITH 1:1 THERAPEUTIC INTERVENTIONS AND PRESENT REALITY. EDUCATE AND ENCOURAGE MEDICAIION COMPLIANCE R-MEDICATION COMPLIANT. PATIENT RESTLESS AND UP IN MERRIWALKER INTERMITTENTLY THROUGHOUT SHIFT. PATIENT WITH LANGUAGE BARRIER AND SPEAKING BROKEN SAO TOMEAN AND SWISS. PATIENT TEARFUL AT TIMES PATIENT PROVIDED NOURISHMENT, FLUIDS, AND TOILETING PROVIDED. PATIENT GRABBING ONTO NURSING WHEN WALKING BY PATIENT. P-CONTINUE TO ENCOURAGE MEDICATION COMPLIANCE, CONTINUE TO PRESENT REALITY, ENCOURGE GROUP THERAPY WHILE AWAKE
--- NOTE | 2019-04-15 05:29 | NUR ---
PATIENT SLEPT <1 HOUR OF INTERRUPTED SLEEP THROUGHOUT SHIFT. Q 15 MINUTE CHECKS MAINTAINED
[2019-04-15 07:17] LABS: ALBUMIN 3.2 gm/dl (3.1-4.5); ALKALINE PHOSPHATASE 81 U/L (45-117); BUN 33 mg/dl (7-24); CHLORIDE 104 mmol/L (98-107); CREATININE 0.89 mg/dL (0.55-1.02); POTASSIUM 3.7 mmol/L (3.5-5.1); SGOT/AST 20 IU/L (3-35); SGPT/ALT 14 U/L (12-78); SODIUM 138 mmol/L (136-145); TOTAL PROTEIN 7.4 gm/dL (6.4-8.2)
[2019-04-15 07:55] VITALS: BP 111/65
--- NOTE | 2019-04-15 08:23 | NUR ---
Shift chart check completed.
--- NOTE | 2019-04-15 11:07 | NUR ---
PT RESTLESS, CONFUSED. REFUSING BREAKFAST. PT ASSISTED TO MERRY WALKER. PT ASSISTED WITH BREAKFAST, PT TOOK OFF SOCKS AND PUT ON HER PLATE. PT REDIRECTED AND REASSURED. PT PROPELS SELF T/O HALLWAY WITHOUT DIFFICULTY. PT CONTINUED TO REFUSE BREAKFAST. PT PLAYED WITH FOOD ON PLATE. STAFF ATTEMPTED TO ASSIST, PT STATES "NO". WILL CONTINUE TO REORIENT AND REDIRECT PT APPROPRIATE. WILL ASSIST PT WITH ADL'S. WILL CONTINUE TO MONITOR APPETITE. Q15 MIN MONITORING PER POLICY.
--- NOTE | 2019-04-15 12:29 | NUR ---
AM GROUP/EXERCISES/BRAIN GAMES/BEACH VOLLEYBALL DUE TO LEVELS OF COGNITION AND LANGUAGE BARRIER PT UNABLE TO PARTICIPATE. PT UTILIZANAHI SHERIDAN UP AND DOWN AHMADI AT THIS TIME.
[2019-04-15 20:00] VITALS: BP 104/60
--- NOTE | 2019-04-15 23:34 | NUR ---
P-CONFUSION, RESTLESSNESS. PATIENT ALERT WITH CONFUSION. 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 PATIENT WITH NO RESPIRATORY DISTRESS. PATIENT WITH NO HALLUCINATIONS OR DELUSIONS. PATIENT WITH NO SUICIDAL OR HOMICIDAL IDEATIONS. I-REDIRECTION WITH 1:1 THERAPEUTIC INTERVENTIONS AND PRESENT REALITY. EDUCATE AND ENCOURAGE MEDICAIION COMPLIANCE R-PATIENT REFUSED HS MEDICATION. PATIENT RESTLESS AND SHOWERED THIS SHIFT. PATIENT WITH ATTEMPTS WITH DISTRACTIBLE ACTIVITIES WITH FOLDING LINEN SOMEWHAT EFFECTIVE. PATIENT WITH LANGUAGE BARRIER AND SPEAKING BROKEN WELSH AND TOGOLESE. PATIENT TEARFUL AT TIMES. PATIENT PROVIDED NOURISHMENT, FLUIDS, AND TOILETING PROVIDED. PATIENT GRABBING ONTO NURSING WHEN WALKING BY PATIENT. P-CONTINUE TO ENCOURAGE MEDICATION COMPLIANCE, CONTINUE TO PRESENT REALITY, ENCOURGE GROUP THERAPY WHILE AWAKE
--- NOTE | 2019-04-15 23:40 | NUR ---
24 HR chart check completed.
--- NOTE | 2019-04-16 06:02 | NUR ---
PATIENT SLEPT 2-3 HOURS OF INTERRUPTED SLEEP THROUGHOUT SHIFT. Q 15 MINUTE CHECKS MAINTAINED
[2019-04-16 07:57] VITALS: BP 130/64
--- NOTE | 2019-04-16 08:00 | NUR ---
Treatment Plan meeting with Dr. Stallworth, RN, SW and Marine Fireman. Plan for discharge Tuesday/Tuesday. Working with family for discharge Plans.
--- NOTE | 2019-04-16 12:00 | NUR ---
Spoke with pt's daughter/DPOAHC Samreen Patel by phone. Per Samreen, she has not had any contact from [facility]. Informed Samreen that pt is to discharge tomorrow. Samreen stated that she wants pt to return to [facility]. This sign writer letterer or painter then phoned Alton at [facility] and informed him of the above conversation. Alton stated that pt cannot return to [facility] and that he would call pt's DPOAHC. Await outcome of conversation of Samreen and Alton. Per today's conversaton, Samreen is aware of the [facility] should this be needed.
--- NOTE | 2019-04-16 13:03 | NUR ---
Spoke with pt's dpoahc, Samreen Patel, who states that she had a conversation with Alton from [facility] who stated that pt is unable to return there. Samreen stated that she is calling the budsman as she wants pt to return to [facility].
--- NOTE | 2019-04-16 14:30 | NUR ---
Spoke with Deonna Velazquez Admissions at [facility]. Pt. is accepted at their facility pending family approval. Advised Intelligence Agent. Clinical Updates faxed to [facility].
--- NOTE | 2019-04-16 15:50 | NUR ---
NO ADVERSE MOODS OR BEHAVIORS NOTED THIS SHIFT. PT ALERT TO PERSON ONLY, CONFUSION AND SHORT TERM MEMORY DEFICITS NOTED PER PT BASELINE. PT MED COMPLIANT WITHOUT DIFFICUTLY. PT CALM, MOOD IS STABLE. PT RESTLESS AT TIMES THROUGHOUT THE DAY. NO HALLUCINATIONS OR DELUSIONS NOTED. NO SUICIDAL THOUGHTS OR BEHAVIORS NOTED AT THIS TIME. PT UP TO A GERICHAIR, D/T INABILITY TO AMBULATE INDEPENDENTLY. PT CONTINENT OF BOWEL AND BOWEL, EPISODES OF INCONTINENCE NOTED, CARE PROVIDED NEEDED. PLAN IS TO MONITOR PT BEHAVIORS ON Q15 MIN SAFETY CHECKS, ENCOURAGE MED COMPLIANCE, PROVIDE EMOTIONAL SUPPORT AND 1:1 FOR PT TO VOICE FEELINGS.
--- NOTE | 2019-04-16 16:19 | NUR ---
PM GROUP, LORENA. LEISURE SKILLS PT ATTENDED BUT DID NOT PARTICPATE DUE TO SLEEPING IN RECLINER ENTIRE GROUP. PT WILL CONTINUE TO ATTEND GROUP AND BE ENCOURAGED TO PARTICPATE TO BEST OF PT ABILITY.
[2019-04-16 20:00] VITALS: BP 124/64
--- NOTE | 2019-04-16 22:36 | NUR ---
DR DOHERTY UPDATED WITH URINE RESULTS. DR DOHERTY TO REVIEW RESULTS TO SEE IF ANY NEW ORDERS TO BE GIVEN
--- NOTE | 2019-04-17 01:28 | NUR ---
24 HR chart check completed.
--- NOTE | 2019-04-17 01:29 | NUR ---
P-CONFUSION, RESTLESSNESS. PATIENT ALERT WITH CONFUSION. 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 PATIENT WITH NO RESPIRATORY DISTRESS. PATIENT WITH NO HALLUCINATIONS OR DELUSIONS. PATIENT WITH NO SUICIDAL OR HOMICIDAL IDEATIONS. I-REDIRECTION WITH 1:1 THERAPEUTIC INTERVENTIONS AND PRESENT REALITY. EDUCATE AND ENCOURAGE MEDICAIION COMPLIANCE R-PATIENT MEDICATION COMPLIANT AT HS. PATIENT WITH LANGUAGE BARRIER AND SPEAKING BROKEN VATICAN CITIZEN AND DANISH. PATIENT PROVIDED NOURISHMENT, FLUIDS, AND TOILETING PROVIDED. PATIENT REDIRECTED WHEN ATTEMPTING TO CLIMB OUT OF CHAIR. PATIENT RESTING IN BED AT THIS TIME. P-CONTINUE TO ENCOURAGE MEDICATION COMPLIANCE, CONTINUE TO PRESENT REALITY, ENCOURGE GROUP THERAPY WHILE AWAKE
--- NOTE | 2019-04-17 05:13 | NUR ---
Patient slept approx. 6 hours throughout shift. Q 15 minute safety checks continued and maintained.
[2019-04-17 07:52] VITALS: BP 144/74
--- NOTE | 2019-04-17 08:00 | NUR ---
Treatment Plan meeting with Dr. Stallworth, RN, AT, and Senior Talent Management Consultant. Plan for discharge at this time is unknown. Pt. cannot return to [facility] and Pt. daughter has requested referrals to [facility] of the [place] and [facility].
--- NOTE | 2019-04-17 08:17 | NUR ---
PT AWAKE, ALERT, RESPS EASY AND EVEN ON ROOM AIR. ON UNIT TO SEE PT AT THIS TIME, UPDATE GIVEN.
--- NOTE | 2019-04-17 11:15 | NUR ---
ON UNIT TO SEE PT AT THIS TIME.
--- NOTE | 2019-04-17 11:40 | NUR ---
Spoke with pt's daughter/DPOAHC Samreen Patel. Per Samreen, she does not want pt to discharge to [facility]. Because of the difficulties with [facility], Samreen is very hesitant to exlpore other [facility] facilities. This parts data writer explained to Samreen that [facility] has several NFs with dementia units that could benefit pt. Samreen expressed that she would rather explore other NFs. After much discussion,referrals are to be made to [facility], [facility], and [facility]. Discussed payer source. Pt was skilled at [facility]. Explained to Samreen the requirements for Medicare to pay for NFs. Discussed Medicaid. Samreen stated that pt had been denied Medicaid when she was at home. Educated Samreen about Medicaid and NFs. Will provide Medicaid application to the family to complete for this parts data writer to submit.
--- NOTE | 2019-04-17 12:03 | NUR ---
AM GROUP PT WAS PRESENT FOR MORNING GROUP THERAPY RECLINED IN A ZEINA CHAIR SLEEPING. PT DID NOT WAKE DURING GROUP. PT IS UNABLE TO PARTICIPATE AT THIS TIME DUE TO COGNITIVE IMPAIRMENT AND LANGUAGE BARRIER.
--- NOTE | 2019-04-17 13:51 | NUR ---
Call Placed to [facility] of the [facility] to follow up on Referral. Left Voice Message for Katy in Admissions.
--- NOTE | 2019-04-17 15:01 | NUR ---
Spoke with Katy at [place] [facility]. Faxed additional Clinicals to Facility for review of referral.
--- NOTE | 2019-04-17 15:49 | NUR ---
PM GROUP/RELAXATION TECHNIQUES PT DID NOT ATTEND AFTERNOON GROUP THERAPY. PT WAS IN THE DAYROOM RECLINED IN A ZEINA CHAIR SLEEPING.
--- NOTE | 2019-04-17 18:00 | NUR ---
P- CONFUSION. POOR ST/LT MEMORY RECALL. STABLE MOOD, NO AGGRESSIVE/COMBATIVE BEHAVIORS THIS SHIFT. LANGUAGE BARRIER REMAINS. PT NAPS INTERMITTENTLY, EASILY AROUSABLE VIA VERBAL/TACTILE STIMULI. I- ORIENTATION, MOOD AND BEHAVIOR ASSESSED. ASSESSED PT FOR SI/HI, INTENT OR PLAN. ASSESSED PT FOR S/S HALLUCINATIONS, PARANOIA, AND/OR DELUSIONS. MEDICATIONS ADMINISTERED PER PHYSICIANS ORDERS. ADL CARE PROVIDED. ENCOURAGED PT TO ATTEND AND PARTICIPATE IN BARBER MILIEU GROUPS AND ACTIVITIES. R- PT IS ALERT AND ORIENTED TO SELF ONLY, APPEARS CONFUSED IN ALL OTHER AREAS. LANGUAGE BARRIER REMAINS. COGNITIVE IMPAIRMENTS NOTED. RESPS EASY AND EVEN ON ROOM AIR. MOOD APPEARS STABLE, AFFECT IS APPROPRIATE. PT NAPS INTERMITTENTLY T/O SHIFT, EASILY AROUSABLE VIA VERBAL/TACTILE STIMULI. NO VOICED SI/HI. NO EVIDENCE OF HALLUCINATIONS, PARANOIA OR DELUSIONS NOTED. PT HAS BEEN MED COMPLIANT THIS DATE WITHOUT DIFFICULTY. NO AGGRESSIVE OR COMBATIVE BEHAVIORS NOTED. NO DISTRESS NOTED. P- PLAN TO CONTINUE CURRENT TREATMENT, CONTINUE TO MONITOR MOOD AND BEHAVIORS, PROVIDE APPROPRIATE REORIENTATION, REDIRECTION AND 1:1 NEEDED. CONTINUE TO ENCOURAGE MEDICATION COMPLIANCE WELL GROUP ATTENDANCE AND PARTICIPATION.
[2019-04-17 20:00] VITALS: BP 130/64
--- NOTE | 2019-04-17 23:20 | NUR ---
P-CONFUSION, RESTLESSNESS. PATIENT ALERT WITH CONFUSION. PATIENT WITH SHORT TERM AND RETAIL LEASING AGENT MEMORY DEFICITS. PATIENT WITH NO RESPIRATORY DISTRESS. PATIENT WITH NO HALLUCINATIONS OR DELUSIONS. PATIENT WITH NO SUICIDAL OR HOMICIDAL IDEATIONS. I-REDIRECTION WITH 1:1 THERAPEUTIC INTERVENTIONS AND PRESENT REALITY. EDUCATE AND ENCOURAGE MEDICAIION COMPLIANCE R-PATIENT MEDICATION COMPLIANT AT HS. PATIENT WITH LANGUAGE BARRIER AND SPEAKING BROKEN BRITISH AND CZECH. PATIENT PROVIDED NOURISHMENT, FLUIDS, AND TOILETING PROVIDED. PATIENT CALM AND PURPOSEFUL AT HS. PATIENT RESTLESS AND NOT LAYING IN BED, BUT IS QUIET SITTING UP IN CHAIR AT THIS TIME. P-CONTINUE TO ENCOURAGE MEDICATION COMPLIANCE, CONTINUE TO PRESENT REALITY, ENCOURGE GROUP THERAPY WHILE AWAKE
--- NOTE | 2019-04-18 00:58 | NUR ---
24 HR chart check completed.
--- NOTE | 2019-04-18 05:56 | NUR ---
PATIENT SLEPT ONE HOUR OF INTERRUPTED SLEEP THROUGHOUT SHIFT. Q 15 MINUTE CHECKS MAINTAINED
--- NOTE | 2019-04-18 08:00 | NUR ---
Treatment Plan meeting with Dr. Stallworth, RN, AT, and Pbx Inspector. Plan for discharge next week. Referrals hav been faxed to [facility] of the [facility]. [facility] was to reach out to the Patient Daughter to discuss acceptance and provide a tour. Daughter is still aprehensive about her Mother going to [facility].
[2019-04-18 08:10] VITALS: BP 117/65
--- NOTE | 2019-04-18 09:48 | NUR ---
Occupational therapy eval completed on 3 with full eval to follow. Precautions include fall risk, bed alarm, body alarm, 3N unit precautions, and Panamanian is not her first language. High complexity level 90483 via chart review, testing, and eval. Recommend SNF to enable return to max functioning. Thank you for this referral. Shannan Sung OTR/L
--- NOTE | 2019-04-18 12:01 | NUR ---
AM GROUP PT WAS PRESENT FOR MORNING GROUP THERAPY SITTING IN A ZEINA CHAIR FOLDING HER BLANKET ON THE TRAY. PT WAS QUIET AND PLEASANT. PT FELL ASLEEP AND EXHBITED NO AGITATION OR AGGRESSION WHILE IN GROUP
--- NOTE | 2019-04-18 14:10 | NUR ---
pt confused. st/lt memory deficits apparent. pt difficult to fully assess d/t language barrier. pt assessed for orientation level and comfort. assessed for appetite and sleep quality. assessed for ability to complete adl's. pt is oriented to person only. pt will nod and say "yea" when verbally cued by name. pt states "no" when assessed for discomfort. pt appetite good. pt is able to feed self at times with encouragement and staff setup and supervision. pt did not sleep last night per nursing report, only 1 hour recorded. pt is a max 2 assist for transfers and ambulation. will continue to encourage continued medication compliance. will continue to assess pt for comfort, repositioning as needed. will continue to encourage pt to eat well and stay awake t/o shift to promote restful sleep at night. will provide assistance with ADLs as appropriate. q15 min monitoring per policy for safety.
--- NOTE | 2019-04-18 15:38 | NUR ---
Spoke with Katy wynne Pike of [facility]. They are currently reviewing patient for [facility]. She states that she will call in the a.m. to notify if patient is accepted.
--- NOTE | 2019-04-18 15:43 | NUR ---
Met with pt's son Dora who voiced gratitude that he could have a conversation with pt today. Claudine John is completing Medicaid application for pt.
--- NOTE | 2019-04-18 16:00 | NUR ---
Clinical Updates faxed to [facility] and [facility] of the [facility].
--- NOTE | 2019-04-18 17:39 | NUR ---
SPOKE WITH DR. NGUYEN RE: PT XANAX NEEDING RENEWED PER DR NGUYEN RESTART XANAX 0.5 BID. WITNESSED BY 2NR LUIS ASKEW.
[2019-04-18 19:52] VITALS: BP 121/66
--- NOTE | 2019-04-19 05:10 | NUR ---
PT SLEPT IN BED FOR APPROX 3 HOURS, AND THEN REQUESTED TO GET UP FOR THE DAY, COOPERATIVE AND PLEASANT WITH ALL CARE
--- NOTE | 2019-04-19 07:20 | NUR ---
OT NOTE Pt was seen this A.M. 1:1 for 23 minute OT session with nursing staff present for observation only. Upon arrival pt was sitting semi reclined in the lazarus chair. Pt identified by name and on wristband due to speaking little citizen of [place]. Pt was taken out into the hallway where she completed multiple sit to stand transfers from chair level with modA X 2 and use of hand rail for UE support. Challenged pt's static standing tolerance needed for increased I in self care tasks and functional transfers. Pt was able to tolerate aprox 45 seconds at a time before sitting due to fatigue. Throughout pt required constant verbal and tactile prompts to correct upright posture. Pt was then taken to her room where a UB grooming task was attempted. Pt completed grooming task consisting of washing her hands and face with maxA due to poor sequencing and following commands. Pt was left sitting semi reclined in the lazarus chair with lap tray in place, body alarm on for safety, and under [facility] staff supervision. Continue with rec D/c plan to SNF. [facility]
--- NOTE | 2019-04-19 08:00 | NUR ---
Treatment Plan meeting with Dr. Stallworth, RN, AT, and Distribution Warehouse Manager. Plan for discharge next week. Referrals have been sent at daughter request to [facility], [facility], and [facility]. No response from those facilities.
[2019-04-19 09:23] VITALS: BP 130/58
--- NOTE | 2019-04-19 11:58 | NUR ---
AM GROUP/EXERCISE AND BALL TOSS PT WAS PRESENT FOR MORNING GROUP THERAPY RECLINED IN A ZEINA CHAIR WITH EYES CLOSED AND DID NOT PARTICIPATE. PT WAS OBSERVED TO BE STRIPPING HER CLOTHES OFF AND WAS REMOVED FROM THE DAYROOM TO BE TOILETED. PT WAS RETURNED AND AGAIN TOOK OFF HER SOCKS AND PANTS AND HAD NOTHING BUT A DEPEND ON. I TRIED TO COVER PT WITH A BLANKET FOR HER DIGNITY THE ROOM WAS FULL OF PEERS. PT WOULD NOT STAY COVERED AND HAD TO BE REMOVED FROM THE DAY ROOM. PT EXHIBITED NO AGRESSIVE BEHAVIORS DURING GROUP
--- NOTE | 2019-04-19 14:30 | NUR ---
Spoke with [place] administrator at [facility]. Pt. is accepted at their facility but daughter did not show up or tour facility.
--- NOTE | 2019-04-19 15:52 | NUR ---
PM GROUP PT WAS PRESENT FOR AFTERNOON [facility] AND WAS CONTENT TO FOLD TOWELS. PT SOON FELL ASLEEP. PT EXHIBITED NO ASSAULTIVE BEHAVIORS DURING GROUP.
--- NOTE | 2019-04-19 18:38 | NUR ---
PATIENT IS ALERT TO SELF WITH CONFUSION. MOOD IS STABLE. NO VOICED STATEMENT OF HI/SI OR PAIN. NO RESPONSE TO INTERNAL STIMULI. LONG/SHORT TERM MEMORY DEFICITS. LANGUAGE BARRIER WITH COMMUNICATION. 1-2 PERSON ASSIST WITH ACTIVITIES OF DAILY LIVING, CONTINENT OF BOWEL AND BLADDER. TOILETED Q 2 HRS AND WHEN ATTEMPTING TO DISROBE. UP IN MERRIWALKER AND CONTENT. 1 PERSON ASSIST WITH MEALS, INTAKES ARE IMPROVING. MEDICAITON COMPLAINT. Q 15 MINUTE SAFETY CHECKS MAINTAINED. CONTINUE TO MONITOR FOR AGGRESSION WITH HANDS ON CARE. PROVIDE ONE ON ONE AND REDIRECTION NEEDED.
--- NOTE | 2019-04-19 18:55 | NUR ---
Shift chart check completed.
[2019-04-19 20:00] VITALS: BP 121/82
--- NOTE | 2019-04-19 22:52 | NUR ---
24 HR chart check completed.
--- NOTE | 2019-04-20 01:22 | NUR ---
P-CONFUSION I-VERBAL INTERVENTION FOR EMOTIONAL SUPPORT. ASSIST WITH NEEDS, ADMINISTER MEDICATIONS, MONITOR SLEEP R-PT HAS MOVED AROUND ON THE UNIT VIA MERRY WALKER. ALERT TO SELF ONLY. LIMITED RESPONDING TO REDIRECTION DUE TO LANGUAGE BARRIER. COMPLIANT TAKING MEDICATIONS CRUSHED & MIXED IN PUDDING. ATE HS SNACK. BEHAVIOR HAS BEEN CALM THIS EVENING. NO AGRESSIVE BEHAVIORS OR DISROBING. CONTINENT OF BLADDER. P-CONTINUE TO MONITOR& PROVIDE PHYSICAL & EMOTIONAL SUPPORT NEEDED.
--- NOTE | 2019-04-20 05:40 | NUR ---
PT HAS SLEPT PAST 2214.
--- NOTE | 2019-04-20 08:00 | NUR ---
Treatment Plan meeting with Dr. Stallworth, RN, AT, SW and Safety Intern. Plan for Discharge next week. Working on Placement for Patient.
[2019-04-20 08:11] VITALS: BP 119/82
--- NOTE | 2019-04-20 08:29 | NUR ---
OT NOTE Pt was seen this A.M. 1:1 for 15 minute OT session with IMPROVEMENT SPECIALIST and nursing staff present for observation only. Upon arrival pt was attempting to get out of bed and presented to therapy with very tearful and restless behavior. Pt identified by name and on wristband due to speaking limited latvian. Pt donned shirt and pants with modA and max tactile prompts. Sit to stand completed from bed level with modA LPN RN followed by functional mobility to the lazarus chair with modA LPN RN and tactile prompts to correct upright posture. Pt was left sitting upright in the lazarus chair in the dining room with lap tray in place, body alarm on for safety, and under U staff supervision. Continue with rec D/C plan to SNF. [facility]
--- NOTE | 2019-04-20 09:35 | NUR ---
NOTIFIED PRN ATIVAN ORDER FROM ADMISSION . GAVE VERBAL ORDER FOR ATIVAN 1MG PO/IM Q4H PRN AGITATION/ANXIETY X 30 DAYS. READ BACK AND VERIFIED. WITNESSED BY 2ND RN [email or web address].
--- NOTE | 2019-04-20 09:44 | NUR ---
Patient will not be accepted to [facility] per damari Hoff.
--- NOTE | 2019-04-20 09:52 | NUR ---
Left a voicemail message for admissiongs coordinator at [facility] requesting status of pt referral.
--- NOTE | 2019-04-20 12:16 | NUR ---
Physical Therapy Pt was seen for evaluation this date with no further therapy recommended at this time as liklihood for functional progression poor based on cognitive impairment and inconsistant physical performance, as well as compliance with requests. Pt had received merry walker from nursing staff, recommend continued use in attempt to facility mobility. Thank you for this referral, refer to evaluation for complete details. Katy Rodriguez, PT
--- NOTE | 2019-04-20 14:29 | NUR ---
PATIENT IS ALERT TO SELF WITH CONFUSION. LONG/SHROT TERM MEMORY DEFICITS. LANGUAGE BARRIER NOTED DURING INTERACTIONS WITH PATIENT. MOOD IS STABLE. NO RESPONSE TO INTERNAL STIMULI OBSERVED. NO VOICED STATEMENTS OF HI/SI OR PAIN. MEDICAITON COMPLIANT. Q 15 MINUTE SAFETY CHECKS MAINTAINED. 2 PERSON ASSIST WITH ACTIVITIES OF DAILY LIVING, MIXED CONTINENCE OF BOWEL AND BLADDER. SET UP FOR MEALS, 1 PERSON ASSIST WITH MEALS, INTAKES ARE GOOD WITH ADEQUATE FLUIDS. NO AGGRESSSION NOTED. CONTINUE TO MONITOR MOOD AND FOR AGGRESSION; PROVIDE ONE ON ONE AND REDIRECTION NEEDED.
--- NOTE | 2019-04-20 14:54 | NUR ---
Spoke with pt's daughter/DPOAHC Samreen Patel by phone. Provided update to Samreen of NF referrals. Discussed other NF options. Samreen stated that she spoke to Chon, network engineer administrator at [facility]. Samreen questions if pt is appropriate for that NF but would like a referral made. Discussed [facility] again. Samreen remains adamant that pt not discharge there. Encouraged Samreen to choose other NFs for referrals. After speaking with Samreen, this justowriter operator attempted to speak to Chon at [facility] but was unable to reach him. Faxed pt referral to his attention. Await response.
[2019-04-20 20:00] VITALS: BP 112/56
--- NOTE | 2019-04-20 20:22 | NUR ---
24 HR chart check completed.
--- NOTE | 2019-04-20 21:44 | NUR ---
P-CONFUSION I-VERBAL INTERVENTION FOR EMOTIONAL SUPPORT. ASSIST WITH NEEDS, ADMINISTER MEDICATIONS, MONITOR SLEEP R-PT SAT IN THE DINING ROOM IN A ZEINA CHAIR. ALERT TO SELF ONLY. LIMITED RESPONDING TO REDIRECTION DUE TO LANGUAGE BARRIER. COMPLIANT TAKING MEDS CRUSHED & MIXED IN ICE CREAM. ATE HS SNACK. BEHAVIOR HAS BEEN CALM. NO AGRESSIVE BEHAVIORS OR DISROBING. CONTINENT OF BLADDER. P-CONTINUE TO MONITOR& PROVIDE PHYSICAL & EMOTIONAL SUPPORT NEEDED.
--- NOTE | 2019-04-21 02:08 | NUR ---
PT HAS SLEPT A FEW HOURS & HAS BEEN AWAKE SINCE APPROX 0130. SHE HAS BEEN SITTING IN A ZEINA CHAIR DIRECTLY IN FRONT OF THE NURSES STATION. INCREASED AGITATION. SPEAKING & YELLING IN ANOTHER LANGUAGE. MEDICATED WITH ATIVAN 1 MG PO @ 0206.
--- NOTE | 2019-04-21 05:36 | NUR ---
ATIVAN MINIMALLY EFFECTIVE & HAS CALMED PT BUT SHE HAS ONLY SLEPT ABOUT 2 HOURS THIS SHIFT.
--- NOTE | 2019-04-21 08:12 | NUR ---
JOBY CRAFT WORKER ON UNIT TO SEE PT AT THIS TIME, UPDATE GIVEN.
[2019-04-21 08:16] VITALS: BP 110/70
--- NOTE | 2019-04-21 11:42 | NUR ---
AM GROUP/EXERCISES/AROMATHERAPY PT ATTENDED BUT SLEPT ENTIRE GROUP IN RECLINER.
--- NOTE | 2019-04-21 13:52 | NUR ---
DR. RAO ON UNIT TO ASSESS PATIENT AND UPDATED WITH HOLDING BP MEDICAITONS.
--- NOTE | 2019-04-21 15:11 | NUR ---
PATIENT IS ALERT TO SELF WITH CONFUSION. LONG/SHORT TERM MEMORY DEFICITS. MOOD IS STABLE. NO VOICED STATEMENTS OF HI/SI OR PAIN. NO RESPONSE TO INTERNAL STIMULI OBSERVED. MEDICATION COMPLAINT. Q 15 MINUTE SAFETY CHECKS MAINTAINED. 1-2 PERSON ASSIST WITH ACTIVITIES OF DAILY LIVING, CONTINENT OF BOWEL AND BLADDER, SET UP FOR MEALS, INTAKES ARE GOOD WITH ADEQUATE FLUIDS. UP IN ZEINA CHAIR FOR COMFORT. CONTINUE TO MONITOR FOR AGGRESSION; PROVIDE ONE ON ONE AND REDIRECTION NEEDED.
--- NOTE | 2019-04-21 15:52 | NUR ---
Shift chart check completed.
[2019-04-21 19:16] VITALS: BP 123/72
--- NOTE | 2019-04-21 19:42 | NUR ---
24 HR chart check completed.
--- NOTE | 2019-04-21 21:15 | NUR ---
P-CONFUSION, MEMORY DEFICITS, LANGUAGE BARRIER I-VERBAL INTERVENTION FOR EMOTIONAL SUPPORT. ASSIST WITH NEEDS, ADMINISTER MEDICATIONS, MONITOR SLEEP R-PT SAT IN THE DINING ROOM IN A ZEINA CHAIR. ALERT TO SELF ONLY. PLEASANTLY CONFUSED WITH NO YELLING OUT OR AGITATIONS. LIMITED RESPONDING TO REDIRECTION DUE TO LANGUAGE BARRIER. COMPLIANT TAKING MEDS CRUSHED & MIXED IN ICE CREAM. ATE HS SNACK. BEHAVIOR HAS BEEN CALM. NO AGRESSIVE BEHAVIORS OR DISROBING. CONTINENT OF BLADDER WITH 2 ASSISTS FROM STAFF. PRESENTLY MOVING ABOUT THE UNIT INDEPENDENTLY IN A MERRY WALKER. P-CONTINUE TO MONITOR & PROVIDE PHYSICAL & EMOTIONAL SUPPORT NEEDED.
--- NOTE | 2019-04-22 05:34 | NUR ---
PT SLEPT FROM [id number] & HAS BEEN AWAKE & SITTING & MOVING AROUND IN THE MERRY WALKER. CONTINENT OF URINE X2 & PROVIDED WITH 2 STAFF ASSISTS.
[2019-04-22 07:22] VITALS: BP 121/79
--- NOTE | 2019-04-22 14:06 | NUR ---
P: IRRITABLE AND RESISTIVE WITH TOLIETING, ATTEMPTING TO REFUSE AFTERNOON MEDICATIONS, SWINGING AT NURSE, TAKING PANTS OFF MULTIPLE TIMES. I: ONE ON ONE, REDIRECTED, TOILETING NEEDS RENDERED, ASSISTED INTO MERRIWALKER TO SELF AMBULATE IN HALLWAY, PATIENT GRABBED TOWEL AND WAS ATTEMPTING TO WIPE DOWN COOLEY-DIVERSIONAL ACTIVITIY. R: PATIENT TOOK AFTERNOON MEDICAITONS FOR PATIENT'S DAUGHTER, FAMILY TALKING TO PATIENT IN IT[place]. DIVERSIONAL ACTIVITY EFFECTIVE. PATIENT IS ALERT TO PERSON WITH CONFUSION AND LANGUAGE BARRIER. LONG/SHORT TERM MEMORY DEFICITS NOTED. MOOD IS IRRITABLE, AGGRESSION WITH HANDS ON CARE. NO VOICED STATEMENT OF HI/SI OR PAIN. NO RESPONSE TO INTERNAL STIMULI OBSERVED. Q 15 MINUTE SAFETY CHECKS MAINTAINED. MEDICATION COMPLIANT WITH DAUGHTERS PRESENT. 1-2 PERSON ASSIST WITH ACTIVITIES OF DAILY LIVING, CONTINENT OF BOWEL AND BLADDER, SET SET UP FOR MEALS, ASSIST NEEDED, INTAKES ARE GOOD WITH EXECELLENT FLUID INTAKES. P: CONTINUE TO MONITOR FOR AGGRESSION WITH HANDS ON CARE, MEDICATION COMPLIANCE, DISROBING; PROVIDE ONE ON ONE, AND REDIRECTION NEEDED.
--- NOTE | 2019-04-22 14:20 | NUR ---
DR. RAO ON UNIT TO ASSESS PATIENT.
--- NOTE | 2019-04-22 16:14 | NUR ---
Shift chart check completed.
[2019-04-22 19:24] VITALS: BP 105/73
--- NOTE | 2019-04-22 23:10 | NUR ---
P: RESTLESS, ANXIOUS, LANGUAGE BARRIER, POOR COGNITION, DISROBING I: REDRESS PT NEEDED, TOILET FREQUENTLY AND PROVIDE HYGEINE NEEDS, ENSURE DIGNITY MAINTAINTED, PROVIDE DISTRACTIONS SUCH TOWELS TO FOLD, SNACKS, DRINKS, CARDS, 1:1, SHOWER R: PT HAD BEEN TOILETED PREVIOUSLY AND THEN BEGAN UNDRESSING IN PUBLIC AREA, DIRECTLY TAKEN TO BATHROOM AGAIN AND GIVEN A SHOWER. PT WAS COMBATIVE AT TIMES BUT ABLE TO BE CALMED RIGHT AFTER. UP TO MUKESH SHERIDAN IN [facility] THIS EVENING PLEASANT AND COOPERATIVE MEDICATION COMPLIANT. ATTEMPTED TO ASSIST PT IN BED, PT REMAINED RESTLESS. P: CONTINUE TO REDIRECT TO BED, PROVIDE SAFETY AND DIGNITY TO PT REDIRECT NEEDED, UP TO ZEINA CHAIR AT THIS TIME TO ELEVATE LEGS AND PROMOTE REST.
--- NOTE | 2019-04-23 02:29 | NUR ---
24 HR chart check completed.
--- NOTE | 2019-04-23 02:30 | NUR ---
PT TAKEN TO BATHROOM AT 0210 BY STAFF, TOILETED VIA 2 ASSIST, PT BECAME COMBATIVE SLAPPING STAFF ARMS AND ATTEMPTING OT HIT STAFF IN FACE WHILE PROVIDING RAJEEV CARE, CALMED WHEN RETURNED TO CHAIR FOR REST
--- NOTE | 2019-04-23 05:24 | NUR ---
PT SLEPT 1 HOUR, UNABLE TO REST IN BED, PT UP TO SHANNA CHAIR
--- NOTE | 2019-04-23 07:50 | NUR ---
OT NOTE Pt was seen this A.M. 1:1 for 15 minute OT session with PRODUCT LISTER and nursing staff present for observation only. Upon arrival pt was sitting reclined in the lazarus chair in the quiet room. Pt identified by name and on wristband. Pt was taken out into the hallway where she completed mutliple sit to stand transfers from chair level with maxA X 2 for inital stand and modA X 2 for other trials. Pt was able to tolerate aprox 25 seconds at a time before sitting due to fatigue and being unable to direct attention to task. Throughout pt required constant verbal and tactile prompts to correct upright posture. Attempted to complete other tasks and pt would not open her eyes or follow commands. Pt was left reclined in the lazarus chair with body alarm on for safety, lap tray in place, and under U staff supervison. Continue with rec D/ cplan to SNF. [facility]
[2019-04-23 08:00] VITALS: BP 115/68
--- NOTE | 2019-04-23 08:00 | NUR ---
Treatment Plan meeting with Dr. Stallworth, RN, AT, SW and Patient Assistant. Plan for discharge when bed available.
--- NOTE | 2019-04-23 09:08 | NUR ---
Left a voicemail message for Ya at [facility] requesting a return call about status of referral for pt.
--- NOTE | 2019-04-23 10:00 | NUR ---
pt confused. pt difficult to fully assess d/t language barrier. pt assessed for orientation level and comfort. assessed for appetite and sleep quality. assessed for ability to complete adl's. pt appears oriented to self only. will make eye contact when verbally cued by name. pt reclined in gerichair for comfort at this time. no overt s/s of discomfort. pt is a 2 assist with hoc, occasionally becoming combative with staff. pt required assistance for breakfast this am, tolerates pureed diet well. will continue to encourage continued medication compliance. will continue to assess pt for comfort, repositioning as needed. will continue to encourage pt to eat well and stay awake t/o shift to promote restful sleep at night. will provide assistance with ADLs as appropriate. q15 min monitoring per policy for safety.
--- NOTE | 2019-04-23 12:02 | NUR ---
AM GROUP PT IS UNABLE TO ATTEND OR PARTICIPATE IN GROUP THERAPY AT THIS TIME DUE TO COGNITIVE IMPAIRMENT
--- NOTE | 2019-04-23 13:48 | NUR ---
Received a voicemail message from Ya at [facility]. Per Ya, there are no beds available. Pt will not be accepted to either NF.
--- NOTE | 2019-04-23 14:25 | NUR ---
Lengthy conversation with pt's daughter/DPOAHC Samreen Patel. Informed Samreen that pt was not accepted to [facility]. Reviewed all the NFs in [facility] individually with Samreen. Samreen presented some names of ALs with memory care units. Educated Samreen about the payer source for these. Because of pt's financial status, pt is not appropriate for an AL memory care unit. Samreen stated that she needed to discuss options with her brother. Reiterated to Samreen that pt is ready for discharge. Samreen continues to voice that she does not want pt to discharge to [facility]. Await a return call.
--- NOTE | 2019-04-23 15:38 | NUR ---
PM GROUP PT DID NOT ATTEND AFTERNOON GROUP THERAPY. PT WAS ASLEEP RECLINED IN A ZEINA CHAIR AND STAYED IN THE DAYROOM WITH THE MENTAL HEALTH CARE WORKER.
--- NOTE | 2019-04-23 17:04 | NUR ---
GENTLEMEN FROM [facility] CALLED IN, HE WILL BE IN THIS EVENING TO SEE PT.
[2019-04-23 19:44] VITALS: BP 138/75
--- NOTE | 2019-04-23 20:52 | NUR ---
EVENING/AROMATHERAPY/COLORTHERAPY PT ATTENDED GROUP BUT ONLY WOKE FOR SNACK. PT SLEPT REMAINDER OF GROUP AND WILL CONTINUE TO ATTEND ALTHOUGH HAS TROUBLE PARTICIPATING DUE TO LEVELS OF COGNITION. PT WILL BE ENCOURAGED TO PARTICIPATE TO BEST OF PT ABILITY.
--- NOTE | 2019-04-24 00:09 | NUR ---
PT COOPERATIVE WITH HOC THIS EVENING, MEDICATION COMPLIANT, PT AMBULATED VIA 2 ASSIST TO THE TOILET AND WAS CONTINENT OF URINE. PT TALKED TO SELF FOR SHORT PERIODS THIS EVENING, WOULD MAKE EYE CONTACT WITH THIS NURSE WITH CONVERSATION BUT UNABLE TO PARTICIPATE APPROPRIATELY DUE TO LAUNGUAGE BARRIER. PT NODS HER HEAD IF SHE UNDERSTANDS WHAT IS TOLD TO HER. SLOW SIMPLE INSTRUCTIONS WITH INTERACTION DECREASES PT AGITATION WITH HYGEINE CARE. PT IN BED AT THIS TIME,SLEEPIGN QUIETLY
--- NOTE | 2019-04-24 03:32 | NUR ---
MELBA LANDIS FROM [facility] CALLED IN AT 0300 REQUESTING INFORMATION BE FAXED TO HER IN REFERENCE TO PT. STATED SHE WILL COME TO UNIT IN AM TO SEE PT
--- NOTE | 2019-04-24 05:15 | NUR ---
24 HR chart check completed.
--- NOTE | 2019-04-24 05:17 | NUR ---
PT SLEPT 6+ HOURS IN BED
--- NOTE | 2019-04-24 07:42 | NUR ---
PATIENT AWAKE, UP IN MERRIWALKER IN DINING ROOM, WAITING ON BREAKFAST. NO DISTRESS NOTED.
--- NOTE | 2019-04-24 08:00 | NUR ---
OT NOTE Pt was seen this A.M. 1:1 for 30 minute OT session with nursing staff present for observation only. Upon arrival pt was sitting reclined in the lazarus chair in the dining room. Pt identified by name and on wristband. Pt was taken to her room where a grooming task was completed while seated. Pt completed UB bathing with maxA for sequencing of task and completion of task. Pt was then taken into the dining room where pt's breakfast tray had arrived. Pt required maxA for set up of tray and was presented with one item at a time due to becoming distracted by others. Pt then completed self feeding with supervision. Pt required one tactile prompt for initation of task. All utnesils and drinks were managed with supervision. Pt was left sitting upright in the lazarus chair with lap tray in place, body alarm on for safety, and under [facility] staff supervision. Continue with rec D/C plan to SNF. [facility]
[2019-04-24 08:05] VITALS: BP 121/67
--- NOTE | 2019-04-24 08:49 | NUR ---
Treatment Plan meeting with Dr. Stallworth RN, AT, and Back Up Scan Coordinator. Plan for discharge . Discharge Facility is still unknown at this time.
--- NOTE | 2019-04-24 11:45 | NUR ---
AM GROUP/DISCUSSION PT WAS PRESENT FOR MORNING GROUP THERAPY RECLINED IN A ZEINA CHAIR SLEEPING. PT WAS NOTED TO TALK IN HER SLEEP OCCASIONALLY BUT DID NOT WAKE DURING GROUP.
--- NOTE | 2019-04-24 13:47 | NUR ---
DR. RAO ON UNIT TO ASSESS PATIENT.
--- NOTE | 2019-04-24 15:33 | NUR ---
Spoke with pt's DPOAHC/daughter Samreen Patel about discharge plan for pt. Samreen is visiting s this afternoon. Samreen was informed of Dr Stallworth's planned discharge date. Await decision from Samreen.
--- NOTE | 2019-04-24 15:53 | NUR ---
PM GROUP/LEISURE INTERESTS PT WAS PRESENT FOR AFTERNOON GROUP THERAPY AND PARTICIPATED BY FOLDING SOME BLANKETS. PT IS UNABLE TO PARTICIPATE IN GROUP ACTIVITIES DUE TO COGNITIVE IMPAIRMENT AND LANGUAGE BARRIER.
--- NOTE | 2019-04-24 18:51 | NUR ---
PATIENT IS ALERT TO SELF WITH CONFUSION. LONG/SHORT TERM MEMORY DEFICITS. NO VOICED STATEMENT OF HI/SI OR PAIN. NO RESPONSE TO INTERNAL STIMULI NOTED. 1 PERSON ASSIST WITH ACTIVITIES OF DAILY LIVING, CONTINENT OF BOWEL AND BLADDER, SET UP FOR MEALS, PATIENT FEED SELF FOR BREAKFAST. ASSISTED WITH LUNCH AND DINNER. NO OUTBURST, AGGRESSION OR DISROBING OF CLOTHING. MEDICAITON COMPLAINT. Q 15 MINUTE SAFETY CHECKS MAINTAINED. UP IN [facility], AMBULATED THROUGHOUT HALLWAY. PLEASANT DEMEANOR. CONTINUE TO MONITOR FOR AGGRESSION; PROVIDE ONE ON ONE AND REDIRECTION NEEDED.
[2019-04-24 20:00] VITALS: BP 122/70
--- NOTE | 2019-04-24 20:52 | NUR ---
EVENING/GAMES PT ATTENDED GROUP AND PARTICIPATED BY OBSERVING PEERS PLAYING GAMES. PT SMILING AND OBSERVING WITH NO ASSAULTIVE BEHAVIORS NOTED AT THIS TIME. PT SAT WITH PEERS ENTIRE GROUP AND WILL CONTINUE TO ATTEND AND BE ENCOURAGED TO PARTICIPATE TO BEST OF PT ABILITY.
--- NOTE | 2019-04-24 22:55 | NUR ---
P-CONFUSION, LANGUAGE BARRIER I-VERBAL INTERVENTION FOR EMOTIONAL SUPPORT. ASSIST WITH NEEDS, ADMINISTER MEDICATIONS, MONITOR SLEEP R-PT MOVED ABOUT THE UNIT VIA MERRY WALKER & REQUIRED REDIRECTION SEVERAL TIMES SHE WAS ATTEMPTING TO GO INTO OTHER PTS ROOMS. ALERT TO SELF ONLY. LIMITED RESPONDING TO REDIRECTION DUE TO LANGUAGE BARRIER. COMPLIANT TAKING MEDS CRUSHED & MIXED IN PEANUT BUTTER. ATE HS SNACK. CONTINENT OF BLADDER WITH 2 ASSISTS FROM STAFF. P-CONTINUE TO MONITOR & PROVIDE PHYSICAL & EMOTIONAL SUPPORT NEEDED.
--- NOTE | 2019-04-25 00:20 | NUR ---
24 HR chart check completed.
--- NOTE | 2019-04-25 05:13 | NUR ---
PT SAT BY STAFF IN THE [facility] WALKER & WAS ASSISTED TO BED & SLEPT PAST 0030.
[2019-04-25 07:23] VITALS: BP 113/73
--- NOTE | 2019-04-25 07:47 | NUR ---
OT NOTE Pt was seen this A.M. 1:1 for 25 minute OT session with LIGHTNING PROTECTION INSTALLER and nursing staff present for observation only. Upon arrival pt was sitting upright in the lazarus chair in the dining room. Pt was taken out into the hallway where she completed multiple sit to stand transfers from chair level with modA X 2 and use of hand rail for UE support. Challenged pt's static standing tolerance needed for increased I in self care tasks and functional transfers, pt was able to tolerate aprox 45 seconds at a tie before sitting due to fatigue. Pt's breakfast tray arrived which she required maxA for set up of tray. Pt was able to complete self feeding with supervision. Pt was left sitting upright in the lazarus chair with lap tray in place, body alarm on for safety, and under U staff supervision. Continue with rec D/C plan to SNF. [facility]
--- NOTE | 2019-04-25 08:00 | NUR ---
Treatment Plan meeting with Dr. Stallworth, RN, AT, and Intranet Specialist. Plan for discharge . Family is still seeking facility.
--- NOTE | 2019-04-25 08:01 | NUR ---
PATIENT IS AWAKE, ASSESSED BY DR. NGUYEN, IN DINING ROOM EATTING BREAKFAST.
--- NOTE | 2019-04-25 09:46 | NUR ---
NURSE CALLED TO BATHROOM. PATIENT HOLDING LEFT HAND GAURDING AND MOANING WHEN ASSESSING HAND. LEFT HAND 5TH DIGIT KNUCKLE RED, SLIGHTLY SWOLLEN, NO CHANGE WITH RANGE OF MOTION. DR. STEIN NOTIFIED. NEW ORDERS IN PLACE.
--- NOTE | 2019-04-25 11:10 | NUR ---
DR. CASSIDY ON UNIT TO ASSESS PATIENT'S LEFT HAND.
--- NOTE | 2019-04-25 12:03 | NUR ---
AM GROUP PT DID NOT ATTEND MORNING GROUP THERAPY. PT WAS IN THE AHMADI IN [facility].
--- NOTE | 2019-04-25 12:22 | NUR ---
GAVE VERBAL ORDER TO RENEW ROUTINE XANAX ORDER IT IS DUE TO THIS DATE.
--- NOTE | 2019-04-25 14:13 | NUR ---
PATIENT IS ALERT TO SELF WITH CONFUSION. LONG/SHORT TERM MEMORY DEFICITS. MOOD IS STABLE. NO VOICED STATEMENT OF HI/SI OR PAIN. NO RESPONSE TO INTERNAL STIMULI OBSERVED. MEDICATION COMPLAINT. Q 15 MINUTE SAFETY CHECKS MAINTAINED. PATIENT HAS COMMUNICATION BARRIER, SOME DIFFICULTY UNDERSTANDING PATIENT FOR HER NEEDS. 1 PERSON ASSIST WITH ACTIVITIES OF DAILY LIVING, CONTINENT OF BOWEL AND BLADDER. SET UP FOR MEALS. PATIENT FEED SELF FOR BREAKFAST. ASSISTED BY STAFF WITH LUNCH. PATIENT UP IN [facility]. PATIENT ATTENDED AFTERNOON GROUP SESSION, LISTENING TO MUSIC. NO AGGRESSION OR DISROBING OF CLOTHING. CONTINUE TO MONITOR FOR AGGRESSION WITH HANDS ON CARE AND DISROBING OF CLOTHING; PROVIDE ONE ON ONE AND REDIRECTION NEEDED.
--- NOTE | 2019-04-25 14:42 | NUR ---
Spoke with pt's DPOAHC Samreen vallecillo AM who asked that this journalists and other writers speak with her brother Dora. Phoned Dora and discussed discharge for pt. Per Dora, the family has decided that they want pt to return to [facility], as Dora has been told by "others" that they must accept pt back. Informed Dora that [facility] states that there are no beds available and that they can refuse for a pt to return, but then run the risk of penalites from the [facility]. This journalists and other writers then phoned [facility] and spoke with Alton, who then spoke to the field administrator. Per Alton, pt's family did not pay for a bedhold and there are no beds available. Phoned Dora and informed him of this. Discussed this further. Dora then stated that he has spoken to a [facility] Rolanda Pelaez, who stated that pt would be accepted to [facility] under skilled care. Rolanda Pelaez phoned this journalists and other writers and requested that a referral be sent to Ya at [facility]. Explained that this had been done previosly and pt was denied. Rolanda stated that she spoke with Ya and pt will be accepted under skilled and not group home. This journalists and other writers then requested that Clara Grewal, WAITSTAFF case advocate, make the referral.
--- NOTE | 2019-04-25 14:46 | NUR ---
Resubmitted Referral to [facility]. Spoke with Ya who called back and states that she Spoke with the Son Dora Yesterday when he came to tour the Facility. She explained to the Patient Son that patient is not approriate for their facility. They definately do not permit yang trejo. Pt. Was not skillable with Documentation that was submitted. [facility] has no beds at this time.
--- NOTE | 2019-04-25 14:56 | NUR ---
Informed pt's son Dora that pt will not be accepted to [facility]. Dora was at work and stated that he would call this flex o writer operator back. Await return call.
--- NOTE | 2019-04-25 15:10 | NUR ---
Referral to [facility].
--- NOTE | 2019-04-25 15:53 | NUR ---
PM GROUP/OPEN ACTIVITY PT WAS PRESENT FOR AFTERNOON GROUP THERAPY SITTING IN THE Independent Space TOWELS. PT LEFT THE DAY ROOM AND SELF-PROPELLED SELF UP AND DOWN THE AHMADI. PT EXHIBITED NO AGITATION OR AGGRESSION WHILE IN GROUP
--- NOTE | 2019-04-25 16:04 | NUR ---
PHYSICAL THERAPY Physical therapy evaluation attempted. Patient unable to follow commands to stand at this time. Will try again at a later date. Thank you. Deonna Stephenson,PT,DPT.
--- NOTE | 2019-04-25 16:14 | NUR ---
Shift chart check completed.
--- NOTE | 2019-04-25 16:42 | NUR ---
Spoke with Deonna Velazquez at [facility]. Advised that family was thinking of their facility. Deonna states that she will speak with [facility] and will notify [facility] if Bed Available.
--- NOTE | 2019-04-25 16:53 | NUR ---
Clinical Updates faxed to [facility]
[2019-04-25 20:03] VITALS: BP 114/72
--- NOTE | 2019-04-25 20:37 | NUR ---
24 HR chart check completed.
--- NOTE | 2019-04-25 21:14 | NUR ---
P-CONFUSION, LANGUAGE BARRIER I-VERBAL INTERVENTION FOR EMOTIONAL SUPPORT. ASSIST WITH NEEDS, ADMINISTER MEDICATIONS, MONITOR SLEEP R-MOOD IS STABLE. PT MOVED ABOUT THE UNIT VIA MERRY WALKER & REQUIRED REDIRECTION SEVERAL TIMES SHE WAS ATTEMPTING TO GO INTO OTHER PTS ROOMS & BEING INTRUSIVE AT TIMES. FREQUENTLY YELLS OUT FOR LUIS. ALERT TO SELF ONLY. LIMITED RESPONDING TO REDIRECTION DUE TO LANGUAGE BARRIER. COMPLIANT TAKING MEDS CRUSHED & MIXED IN PEANUT BUTTER. ATE HS SNACK. CONTINENT OF BLADDER & BOWEL WITH 2 ASSISTS FROM STAFF. P-CONTINUE TO MONITOR & PROVIDE PHYSICAL & EMOTIONAL SUPPORT NEEDED.
--- NOTE | 2019-04-26 05:44 | NUR ---
PT SLEPT PAST 0100.
--- NOTE | 2019-04-26 07:50 | NUR ---
OT NOTE Pt was seen this A.M. 1:1 for 15 minute OT session with nursing staff present for observation only. Upon arrival pt was supine in bed. Pt identified by name and on wristband due to limited guatemalan. Pt transferred supine to sit EOB with maxA X 2. While sitting EOB requested for pt to narcisa B socks and pt repeated over again "no,no, no" resulting in maxA to narcisa. Sit to stand completed from bed level with maxA X 2 followed by stand pivot from EOB to the lazarus chair with maxA X 2. She was then taken into the dining olson. There her breakfast tray arrived which she required maxA for set up of tray. Therapist was unable to get pt to open her eyes resulting in no self feeding being completed and session coming to an end. Pt was left sitting upright in the lazarus chair with lap tray in place, body alarm on for safety, and under U staff supervision. Continue with POC as able. [facility]
[2019-04-26 08:00] VITALS: BP 122/74
--- NOTE | 2019-04-26 08:00 | NUR ---
Treatment Plan meeting with Dr. Stallworth RN, AT and Hadoop Software Engineer. Plan for discharge Today. Resident Review has not returned and Pt. has no facility to discharge to at this time.
[2019-04-26] MEDS ORDERED: MEMANTINE HCL10 MG PO (08:41)
[2019-04-26] MEDS ORDERED: ATARAX,VISTARIL50 MG PO (08:41)
[2019-04-26] MEDS ORDERED: ALPRAZOLAM0.5 M3 PO (08:41)
[2019-04-26] MEDS ORDERED: PALIPERIDONE ER3 MG PO (08:41)
[2019-04-26] MEDS ORDERED: EXELON13.3 MG/21 T (08:41)
[2019-04-26] MEDS ORDERED: MIRTAZAPINE15 M2 PO (08:41)
--- NOTE | 2019-04-26 09:41 | NUR ---
P: Patient has long and short term memory deficits, confusion I: Provide reorientation as need, monitor patient for mood, hallucinations, SI/HI, and pain. Maintain safety on the unit, encourage patient to attend and participate in groups , encourage patient to socialize with peers and staff R: Patient is alert to self only, patient appears confused and has been pleasant and cooperative. Patient denies any depression, pain, hallucinations, SI/HI. Provided assistance with ADLS as needed. P: Continue to monitor patient for pain, mood, SI/HI, hallucinations, orientation, and safety. Continue to provide reorientation as needed and assist with ADLs as needed.
--- NOTE | 2019-04-26 10:29 | NUR ---
Dr Ruiz notified of patients discharge set for today, Dr Ruiz reports that he will be up to see the patient before she leaves. No new orders at this time.
[2019-04-26] MEDS ORDERED: VITAMIN D32000 UNI1 PO (11:11)
--- NOTE | 2019-04-26 11:11 | NUR ---
Referral faxed to [facility] at request of Patient Daughter.
--- NOTE | 2019-04-26 11:17 | NUR ---
Call placed to Medicaid to inquire about Status of Medicaid Application. Left On hold for extended period of time then transferred to voice mail. Left message and return call number.
--- NOTE | 2019-04-26 11:18 | NUR ---
Spoke with Leticia at [facility]. Female beds available. Advised that family had requested referral to [facility]. Referral Faxed to [facility].
--- NOTE | 2019-04-26 11:40 | NUR ---
PHYSICAL THERAPY Physical therapy evaluation complete, 3N. Full evaluation to follow. PT to progress per POC. Recommend discharge to SNF for continued progression to meet maximum level of potential. Thank you. Deonna Stephenson,PT,DPT.
--- NOTE | 2019-04-26 11:52 | NUR ---
AM GROUP PT WAS PRESENT FOR MORNING GROUP THERAPY RECLINED IN A ZEINA CHAIR SLEEPING SOUNDLY. PT WAS NOTED TO BE SNORING AND DID NOT WAKE DURING GROUP
--- NOTE | 2019-04-26 14:00 | NUR ---
Level two Letter received via Fax. Pt. is permitted to enter Nursing Facility.
--- NOTE | 2019-04-26 14:00 | NUR ---
Received call back from Janet Huang at [facility]. No appropriate Beds Available at this time.
--- NOTE | 2019-04-26 14:08 | NUR ---
Left Message for Ya Insurance Solicitor for [facility] to discuss SNF Placement.
--- NOTE | 2019-04-26 14:25 | NUR ---
Updated Clinicals faxed to [facility].
--- NOTE | 2019-04-26 14:39 | NUR ---
This travel writer received a voicemail message from pt's son Dora this AM stating that his sister Samreen Patel received a call stating that pt had to discharge today to [facility]. Dora stated that he is appealing pt's discharge through [employer]. After receiving this message, attempted to reach Dora by phone but was unable to do so. Phoned pt's daughter/DPOAHC Samreen Patel to discuss. Samreen stated that she does not want pt to discharge today to [facility] and that is the reason that they are appealing the discharge. Voiced to Samreen that it was unfortunate that she received that call. Educated Samreen about the process and encouraged her to continue to work with this travel writer toward a discharge plan for pt. Empathized with Samreen about the frustrations that she is experiencing but also pointed out to her that appealing the discharge only prolongs a discharge that continue to have no home/placement for pt. Samreen voiced understanding. Explained to Samreen that the ideal placements that Samreen is wanting for pt has declined pt. Therefore, the ideal has to be replaced with a realistic plan. Discussed NF options again. Samreen is agreeable to referrals to [facility], [facility], and [facility]. Asked Samreen who had told her that pt is discharging today to [facility]. Samreen stated it was Deonna, the lab coordinator at [facility]. She also added that Deonna said that pt would not be accepted until Samreen met with Deonna at the facility. Samreen continues to not want pt to discharge to [facility] and is also unable to meet with Deonna today due to Samreen's work schedule. To solidify discharge, a resident review determination must be received, and a payer source must be determined. PT re-eval has been requested. Message left at [facility] and with the general Medicaid service phone line requesting status of pt's Medicaid application. Notified Alina Linda RN, [facility] Licensed Marine Engineer, that pt's family is appealing pt's discharge through [employer].
--- NOTE | 2019-04-26 14:45 | NUR ---
No call back at this time from Medicaid Dept.
--- NOTE | 2019-04-26 15:12 | NUR ---
Received a call from pt's daughter/DPOAHC Samreen Patel. Provided update to her about referrals. Samreen would like referrals made to Renato Canales at [facility].
--- NOTE | 2019-04-26 15:17 | NUR ---
Spoke with [facility]. Beds available at facility. Meggan Provided Gear Machine Operator with Phone number to fax referral and referral was faxed to .
--- NOTE | 2019-04-26 15:23 | NUR ---
Received call from [facility]. Declined referral states that Patient is Not appropriate for their facility.
--- NOTE | 2019-04-26 15:38 | NUR ---
[place] that pt was denied admission to [facility]. Phoned pt's daughter Samreen Patel and informed her of this.
--- NOTE | 2019-04-26 15:49 | NUR ---
PM GROUP/ART AND MUSIC PT WAS PRESENT FOR AFTERNOON GROUP THERAPY SLEEPING RECLINED IN A ZEINA CHAIR. PT AWOKE AND BEGAN TRYING TO GET UP. THE NURSE WAS CALLED AND PT WAS TAKEN TO RESTROOM AND THEN PLACED IN MERRY WALKER AND RETURNED TO THE DAYROOM. PT BECAME AGITATED AT A PEER TOUCHING AND BEGAN YELLING AND SWATTING. PEER WAS REDIRECTED. PT CONTINUED TO YELL OUT EVEN THOUGH NO ONE WAS NEAR HER. PT WAS AGITATED AND WAS RUNNING INTO PEERS AND MOVING FURNITURE AROUND. PT BECAME AGITATED WITH REDIRECTION.
--- NOTE | 2019-04-26 19:28 | NUR ---
24 HR chart check completed.
[2019-04-26 19:54] VITALS: BP 120/84
--- NOTE | 2019-04-26 21:07 | NUR ---
P-CONFUSION, LANGUAGE BARRIER I-VERBAL INTERVENTION FOR EMOTIONAL SUPPORT. ASSIST WITH NEEDS, ADMINISTER MEDICATIONS, MONITOR SLEEP R-MOOD IS STABLE. PT MOVED ABOUT THE UNIT VIA MERRY WALKER & SAT QUIETLY IN THE DINING ROOM & ATE HER SNACK. ALERT TO SELF ONLY. LIMITED RESPONDING TO REDIRECTION DUE TO LANGUAGE BARRIER. COMPLIANT TAKING MEDS CRUSHED & MIXED IN PEANUT BUTTER. CONTINENT OF BLADDER. 2 ASSISTS FROM STAFF PROVIDED FOR HANDS ON CARE. HAS REMAINED CALM & QUIET. DID MEDICATE PT WITH PRN MOTRIN 400 MG @ 2036 FOR LEFT HAND. P-CONTINUE TO MONITOR & PROVIDE PHYSICAL & EMOTIONAL SUPPORT NEEDED.
--- NOTE | 2019-04-27 00:47 | NUR ---
PT HAS BEEN RESTLESS & YELLING OUT FOR LUIS WHILE MOVING ABOUT IN THE [place]. MEDICATED WITH ATIVAN 1MG PO @ 0041.
--- NOTE | 2019-04-27 05:23 | NUR ---
ATIVAN HAS BEEN INEFFECTIVE & PT HAS REMAINED AWAKE THE ENTIRE SHIFT. SHE HAS BEEN SITTING IN A MERRY WALKER & A ZEINA CHAIR & CONTINUES TO RANDOMLY CALL OUT FOR LUIS. CONTINENT OF VOIDING X 2 WITH 2 STAFF ASSISTS.
--- NOTE | 2019-04-27 07:10 | NUR ---
PHYSICAL THERAPY Patient seen this am for therapy visit and was semi reclined in activity room Tiffany chair upon therapist arrival. OT delivery assistant was present for observation only during CELL TUBER MACHINE visit as patient transfers sit to stand MIN A x 1. Patient ambulates AIRCRAFT ELECTRONICS TECHNICAL OFFICER/MIN, 50'x 2, demonstrating decreased stride and unsteady gait during speed change. Patient also very impulsive at times and hard to communicate due to language barrier, returning to activity room Tiffany chair under [facility] staff Supervision. Will continue per POC as tolerated, total treatment time 14 minutes. Yogesh Prasad, CELL TUBER MACHINE
--- NOTE | 2019-04-27 07:30 | NUR ---
OT NOTE Pt was seen this A.M. 1:1 for 20 minute OT session with DIRECT SERVICE PROFESSIONAL and nursing staff present for observation only. Upon arrival pt was sitting upright in the lazarus chair. Pt identified by name and on wristband. Pt completed sit to stand from chair level with modA X 2 followed by functional mobility into the bathroom with Pilar X 2 FAMILY READINESS SUPPORT ASSISTANT. There she transferred on/off standard commode with modA. Clothing management completed with modA and toilet hygiene completed with maxA. Pt then stood sink side while washing her hands with Pilar. Pt was left sitting upright in the lazarus chair with body alarm on for safety, lap tray in place, and under U staff supervision. Continue with rec D/C plan to SNF. FAIZAN [facility]
[2019-04-27 07:51] VITALS: BP 116/75
--- NOTE | 2019-04-27 08:17 | NUR ---
Occupational Therapy duplicate referral received. Patient on OT caseload receiving treatment. D/C duplicate order. Joyce Sung OTR/L
--- NOTE | 2019-04-27 08:22 | NUR ---
Received Call from Xavier from [facility]. [facility] did not accept due to behaviors and they feel that patient would benefit from a Locked Unit.
--- NOTE | 2019-04-27 10:00 | NUR ---
Referrals to Vanesa at the [facility], [facility], and [facility].
--- NOTE | 2019-04-27 10:06 | NUR ---
Spoke with Ya at [facility]. No beds available at this time. Referrals faxed to Erica Lerner and Erica at [facility].
--- NOTE | 2019-04-27 10:39 | NUR ---
[place] that [facility] denied pt and [facility] again denied pt. Phoned pt's daughter/DPOAHC Samreen Patel and informed her of this. Discussed other NFs. Awaiting decision from Rochelle Lerner. Referrals to be sent this AM are: Erica [facility]ner, Erica at [facility], Contin[facility] Care at [facility], Akbar Contrerasor, and Virginia Ulloa at [place]. Samreen is also planning on visiting [facility].
--- NOTE | 2019-04-27 11:03 | NUR ---
Left Message for Frances Walls Clinical Liason for [facility] concerning referral. Frances Returned call and Provided Nisha the [place] [facility] number. Call was placed to Nisha [phone], she is reviewing referral and will call if bed available.
--- NOTE | 2019-04-27 11:38 | NUR ---
Received a call from Nisha at [facility]. No Beds at this time. If family would like to place Patient on waiting list when appropriate bed opens they can do so by calling the facility.
--- NOTE | 2019-04-27 12:04 | NUR ---
AM GROUP PT DID NOT ATTEND MORNING GROUP THERAPY. PT WAS IN THE HALLWAY IN THE [facility], SELF-PROPELLING UP AND DOWN THE AHMADI AND DID NOT WANT TO ENTER THE GROUP ROOM
--- NOTE | 2019-04-27 12:21 | NUR ---
Received call from Evon at [place]. No appropriate Beds available.
--- NOTE | 2019-04-27 12:58 | NUR ---
Received call from Maureen at [facility]. Unable to meet patients needs, Declined Referral.
--- NOTE | 2019-04-27 13:22 | NUR ---
Spoke with Natalie Bookbinder Apprentice at [facility]. Unable to accept Referral after review with
--- NOTE | 2019-04-27 13:25 | NUR ---
Left Message for Dianne at [facility] concerning Referral.
--- NOTE | 2019-04-27 13:29 | NUR ---
Left message for SAY DEAL at [facility] concerning referral.
--- NOTE | 2019-04-27 14:25 | NUR ---
PT HOLDING LEFT SIDE OF NECK AND GRIMACING. PRN IBUPROFEN GIVEN AT THIS TIME. WILL MONITOR EFFECTIVENESS OF MEDICATION.
--- NOTE | 2019-04-27 14:38 | NUR ---
PHYSICAL THERAPY CO-SIGN I approve of the Physical Therapy notes written above. ADONIS BRUNO PT,DPT
--- NOTE | 2019-04-27 15:16 | NUR ---
Left Second Voice Message for Dianne DEAL at [facility] at [facility] concerning Referral.
--- NOTE | 2019-04-27 15:19 | NUR ---
Call Placed to [facility]. Left Voice message for Sneha DEAL to return call reguarding Referral.
--- NOTE | 2019-04-27 15:38 | NUR ---
Phoned pt's daughter/DPOAHC Samreen Patel and provided her updates on all the NF denials. Samreen stated that she was at [facility] and is touring. Await return call.
--- NOTE | 2019-04-27 15:54 | NUR ---
PM GROUP/MOVIE PT DID NOT ATTEND AFTERNOON GROUP THERAPY. PT IS UNABLE TO PARTICIPATE DUE TO COGNITIVE IMPAIRMENT AND LANGUAGE BARRIER. PT WAS IN HALLWAY SELF-PROPELLING AROUND IN THE [employer].
--- NOTE | 2019-04-27 16:02 | NUR ---
OCCUPATIONAL THERAPY CO-SIGN I approve of the Occupational Therapy notes written above. JOIE JESSICA OTR/[facility]
[2019-04-27 20:12] VITALS: BP 111/70
--- NOTE | 2019-04-27 22:40 | NUR ---
NO ADVERSE BEHAVIORS NOTED. PT ALERT TO SELF, CONFUSED. MOOD STABLE. PT CALM, INTERACTIVE. MEDICATION COMPLIANT WITHOUT DIFFICULTY, UNABLE TO EDUCATE DUE TO COGNITION AND LANGUAGE BARRIER. ALL NEEDS ANTICIPATED BY STAFF, COMPLIANT WITH HANDS ON CARE. NO NOTED RESPONDING TO INTERNAL STIMULI. NO PHYSICAL COMPLAINTS VOICED. PT CURRENTLY LAYING BACK IN ZEINA CHAIR NEAR NURSES STATION DUE TO LACK OF SAFETY AWARENESS. PTS EYES CLOSED, RESPIRATIONS EASY AND REGULAR, NO SIGNS OR SYMPTOMS OF DISTRESS NOTED. PLAN IS CONTINUE TO MONITOR MOOD AND BEHAVIORS. PROVIDE 1:1 AND EMOTIONAL SUPPORT NEEDED. ENCOURAGE MEDICATION COMPLIANCE. MAINTAIN Q 15 MIN CHECKS.
--- NOTE | 2019-04-28 05:02 | NUR ---
24 HOUR CHART CHECK COMPLETED.
--- NOTE | 2019-04-28 06:11 | NUR ---
PATIENT OBSERVED ON Q 15 MIN CHECKS TO HAVE SLEPT APPROX 6 HOURS WITH NO AWAKENINGS OR SIGNS AND SYMPTOMS OF DISTRESS NOTED.
[2019-04-28 07:41] VITALS: BP 121/65
--- NOTE | 2019-04-28 09:39 | NUR ---
No adverse moods or behaviors noted this shift thus far. Patient remains at baseline. Patient continues to be confused . Patient only oriented to person. Reorientation provided. Patient is pleasant and cooperative thus far. Safety maintained on the unit via 15 minute safety checks. Patient is able to make needs and wants known. No internal stimulation observed or reported. Patient is continent , patient requires assistance with ADLs and transfers. Patient on falling star precautions,safety maintained.
--- NOTE | 2019-04-28 11:54 | NUR ---
AM GROUP/MUSIC/GAMES PT UNABLE TO ATTEND DUE TO LEVELS OF COGNITION. PT UTILIZING SHREYAS WALKER TO AMBULATE AROUND UNIT AT THIS TIME.
--- NOTE | 2019-04-28 12:00 | NUR ---
Shift chart check completed.
--- NOTE | 2019-04-28 16:18 | NUR ---
PM GROUP/REMINISCE/LEISURE SKILLS PT UNABLE TO PARTICIPATE DUE TO LEVELS OF COGNITION. PT UTILIZING SHREYAS WALKER TO AMBULATE AROUND UNIT. PT DID NOT BECOME ASSAULTIVE AT THIS TIME.
[2019-04-28 20:14] VITALS: BP 135/71
--- NOTE | 2019-04-29 04:09 | NUR ---
P-CONFUSION, LANGUAGE BARRIER I-ASSESS ORIENTATION, MOOD, AND BEHAVIOR. PROVIDE 1:1 WITH EMOTIONAL SUPPORT NEEDED. ENCOURAGE MEDICATION COMPLIANCE AND EDUCATE. MONITOR SLEEP. R- PT ALERT TO SELF, CONFUSED. MOOD STABLE, ANGRY/IRRITABLE AT TIMES. PT MOBILIZES SELF THROUGHOUT UNIT USING A MERRY WALKER, COMPLIANT WITH HS SNACK. PT ATTEMPTS TO GRAB AT STAFF AND PEERS AT TIMES, LIMITED RESPONDING TO REDIRECTION WHEN PRESENTED DUE TO LANGUAGE BARRIER. MEDICATION COMPLIANT WITHOUT DIFFICULTY, UNABLE TO EDUCATE DUE TO COGNITION. ALL NEEDS ANTICIPATED BY STAFF, COMPLIANT WITH HANDS ON CARE. NO NOTED RESPONDING TO INTERNAL STIMULI. NO PHYSICAL COMPLAINTS VOICED. PT CURRENTLY LAYING BACK IN ZEINA CHAIR NEAR NURSES STATION DUE TO LACK OF SAFETY AWARENESS. RESPIRATIONS EASY AND REGULAR, NO SIGNS OR SYMPTOMS OF DISTRESS NOTED. P- CONTINUE TO MONITOR MOOD AND BEHAVIORS. PROVIDE 1:1 AND EMOTIONAL SUPPORT NEEDED. ENCOURAGE MEDICATION COMPLIANCE. MAINTAIN Q 15 MIN CHECKS.
--- NOTE | 2019-04-29 04:47 | NUR ---
24 HOUR CHART CHECK COMPLETED.
--- NOTE | 2019-04-29 05:32 | NUR ---
PATIENT OBSERVED ON Q 15 MIN CHECKS TO HAVE SLEPT APPROX 0 HOURS THROUGHOUT THE NIGHT. PT NEAR STAFF IN ZEINA CHAIR, CALM. NO SIGNS OR SYMPTOMS OF DISTRESS NOTED.
[2019-04-29 07:36] VITALS: BP 122/65
--- NOTE | 2019-04-29 07:55 | NUR ---
Patient eating breakfast with no c/o discomfort. Respirations easy and regular. Vital signs stable. No overt distress. DIRK ASKEW
--- NOTE | 2019-04-29 10:37 | NUR ---
PT CONFUSED. ST/LT MEMORY DEFICITS APPARENT. PT DIFFICULT TO FULLY ASSESS D/T LANGUAGE BARRIER. PT ASSESSED FOR ORIENTATION LEVEL, MOOD, AND AFFECT. ASSESSED FOR S/S OF ATTENDING TO INTERNAL STIMULI. ASSESSED FOR ABILITY TO COMPLETE ADL'S. ASSESSED FOR SLEEP QUALITY AND APPETITE PT APPEARS ORIENTED TO SELF ONLY. PT WILL NOD OR SMILE WHEN VERBALLY CUED BY NAME. PT MOOD APPEARS STABLE, AFFECT IS APPROPRIATE. PT DISPLAYS NO OVERT S/S OF ATTENDING TO INTERNAL STIMULI. PT ABLE TO FEED SELF BREAKFAST WITHOUT PROBLEMS WITH STAFF SETUP AND SUPERVISION, TOLERATES PUREED DIET WELL. PT DID NOT SLEEP PER NURSING REPORT AND OBSERVATION. PT IS A 2 ASSIST WITH HOC, OCCASIONALLY BECOMING COMBATIVE WITH STAFF, CALMS AFTER CARE IS COMPLETED. WILL CONTINUE TO ENCOURAGE CONTINUED MEDICATION COMPLIANCE. WILL CONTINUE TO ASSESS PT FOR COMFORT, REPOSITIONING NEEDED. WILL CONTINUE TO ENCOURAGE PT TO EAT WELL AND STAY AWAKE T/O SHIFT TO PROMOTE RESTFUL SLEEP AT NIGHT. WILL PROVIDE ASSISTANCE WITH ADLS APPROPRIATE. Q 15 MIN MONITORING PER POLICY FOR SAFETY.
[2019-04-29 19:56] VITALS: BP 126/70
[2019-04-29 20:10] VITALS: BP 126/70
--- NOTE | 2019-04-30 01:15 | NUR ---
NO ADVERSE BEHAVIORS NOTED. PT ALERT TO SELF, CONFUSED. MOOD STABLE, ANGRY/IRRITABLE AT TIMES. PT CALM, INTERACTIVE. MEDICATION COMPLIANT WITHOUT DIFFICULTY, UNABLE TO EDUCATE DUE TO COGNITION AND LANGUAGE BARRIER. ALL NEEDS ANTICIPATED BY STAFF, COMPLIANT WITH HANDS ON CARE. NO NOTED RESPONDING TO INTERNAL STIMULI. NO PHYSICAL COMPLAINTS VOICED. PT CURRENTLY LAYING BACK IN ZEINA CHAIR NEAR NURSES STATION DUE TO LACK OF SAFETY AWARENESS. PTS EYES CLOSED, RESPIRATIONS EASY AND REGULAR, NO SIGNS OR SYMPTOMS OF DISTRESS NOTED. PLAN IS CONTINUE TO MONITOR MOOD AND BEHAVIORS. PROVIDE 1:1 AND EMOTIONAL SUPPORT NEEDED. ENCOURAGE MEDICATION COMPLIANCE. MAINTAIN Q 15 MIN CHECKS.
--- NOTE | 2019-04-30 03:19 | NUR ---
24 hour chart check completed.
--- NOTE | 2019-04-30 06:11 | NUR ---
PATIENT OBSERVED ON Q 15 MIN CHECKS TO HAVE SLEPT APPROX 2 HOURS THIS SHIFT INTERRUPTED. NO SIGNS OR SYMPTOMS OF DISTRESS NOTED.
[2019-04-30 07:43] VITALS: BP 142/79
--- NOTE | 2019-04-30 07:50 | NUR ---
OT NOTE Attempted to see pt this A.M. for OT session and upon arrival pt was asleep in the lazarus chair in the dining room. Pt was unable to arouse to verbal or tactile stimuli. Will check back at a later time/date and continue with POC as able. FAIZAN [facility]
--- NOTE | 2019-04-30 08:00 | NUR ---
Treatment Plan meeting with Dr. Stallworth, RN, AT, and Electrome[employer]. Plan for discharge today if Bed Secured at [facility] per family request. Family informed Nurse over the weekend that they want patient to go to [facility]. Call was placed to [facility] and Spoke with Deonna Velazquez. Deonna states that family does want Pt. placed at their facility.
--- NOTE | 2019-04-30 09:12 | NUR ---
SPOKE WITH DR. RUIZ, AT [phone], RE: PT DISCHARGE FOR 1030 TODAY AND MEDICAL MEDS NEEDING COMPLETD.
--- NOTE | 2019-04-30 10:44 | NUR ---
PT ALERT TO PERSON ONLY, CONFUSION AND SHORT TERM MEMORY DEFICITS NOTED PER PT BASELINE. PT CALM, MOOD IS STABLE. NO HALLUCINATIONS OR DELUSIONS NOTED. NO SUICIDAL THOUGHTS OR BEHAVIORS NOTED. PT UP TO GERDEBORAH OR NAWAF D/T UNSTEADY GAIT AND LACK OF SAFETY AWARENESS. PT WILL AMBULAE WITH 1 STAFF ASSIST. PT CONTINENT OF BOWEL AND BLADDER. PT PUREED DIET WITH THIN LIQUIDS WILL FEED SELF AT TIMES. SKIN INTACT, NO WOUNDS OR OPEN AREAS NOTED. STAFF WILL CONTINUE TO MONITOR PT BEHAVIORS ON Q15 MIN SAFETY CHECKS AND PREPARE FRO DISCAHRGE TODAY. PICKUP TIME SCHEDULED FOR NOON TO [facility]. NURSE TO NURSE REPORT GIVEN TO ADONIS AT 1041.
--- NOTE | 2019-04-30 11:30 | NUR ---
Discharge Paperwork Faxed to [facility].
--- NOTE | 2019-04-30 12:08 | NUR ---
AM GROUP PT WAS PRESENT FOR MORNING GROUP THERAPY RECLINED IN A ZEINA CHAIR SLEEPING. PT DID NOT WAKE DURING GROUP. PT IS SET TO BE DISCHARGED FROM THE UNIT TODAY
--- NOTE | 2019-04-30 12:16 | NUR ---
Phoned pt's daughter/DPOAHC Samreen Convent this AM to inquire about NF decision. Samreen stated that she had decided on [facility]. Ben Grewal LPN media planner / buyer contacted [facility] and discharge was solidified.
--- NOTE | 2019-04-30 12:17 | NUR ---
Patient is discharging to [facility] today. Follow-up will be with Dr Wm Stallworth, visiting psychiatrist. While at [facility], pt's behaviors improved. Pt's mood and emotions improved also. Pt continued to be pleasantly confused at discharge.
--- NOTE | 2019-04-30 12:51 | NUR ---
Call Placed to Family and notified of Discharge at this time. They requested Phone call so that they can be at the facility to meet her upon arrival.
--- NOTE | 2019-04-30 12:54 | NUR ---
PT DISCHARGED TO [facility] VIA [facility]. PT BELONGINGS, LOCK BOX INVENTORY AND DISCHARGE PACKET SENT WITH PT. [facility] ATTENDANT SIGNED OFF ON PT LOCK BOX INVENTORY. PT ALERT AT DISCHARGE WITH NO S/S OF PAIN OR DISTRESS NOTED.
--- NOTE | 2019-05-01 08:24 | NUR ---
OCCUPATIONAL THERAPY CO-SIGN I approve of the Occupational Therapy notes written above. JOIE JESSICA OTR/[facility]
--- NOTE | 2019-05-01 08:38 | NUR ---
PHYSICAL THERAPY CO-SIGN I approve of the Physical Therapy notes written above. ADONIS BRUNO PT,DPT
== END 2019-04-30 12:54 | disposition other institution (70) | DRG 883 ==
LOC: 3N 17:57
PROVIDERS: Nurse Practitioner Women's Health; ADMIT Psychiatry & Neurology Psychiatry
DX: F63.81 Intermittent explosive disorder (principal); F33.9 Major depressive disorder, recurrent, unspecified; F02.81 Dementia in other diseases classified elsewhere, unspecified severity, with behavioral disturbance; N39.0 Urinary tract infection, site not specified; E03.9 Hypothyroidism, unspecified; F41.9 Anxiety disorder, unspecified; M54.9 Dorsalgia, unspecified; Z96.652 Presence of left artificial knee joint; M62.81 Muscle weakness (generalized); K21.9 Gastro-esophageal reflux disease without esophagitis; G30.9 Alzheimer's disease, unspecified; I10 Essential (primary) hypertension; E55.9 Vitamin D deficiency, unspecified; R13.10 Dysphagia, unspecified; G47.00 Insomnia, unspecified; Z91.81 History of falling; Z79.899 Other long term (current) drug therapy